=== PATIENT | male | born 1955 | race Caucasian/White ===

== ENCOUNTER → 2017-02-24 | Outpatient (CLI) | payer OTHER ==
--- NOTE | 2017-02-24 12:25 | US ---
EXAMINATION TYPE: US kidneys/renal and bladder DATE OF EXAM: 02/24/2017 11:22 AM COMPARISON: NONE CLINICAL HISTORY: 61-year-old male R13.9 HEMATURIA,R10.9 FLANK PAIN. Right flank pain, history of kid rylee stones. TECHNIQUE: Multiple sonographic images of the kidneys and bladder were obtained. FINDINGS: Right Kidney: 13.1 x 5.3 x 5.6 cm with a mid pole echogenic focus measuring 7 mm. No hydronephrosis. Left Kidney: 12.5 x 5.9 x 5.0 cm with a 5 mm echogenic focus at the lower pole. There is mild caliect asis. No pelvic dilatation seen. No gross abnormality of the urine distended bladder. Both ureteral jets are visualized. Incidentally, echogenic appearance to the liver adjacent to the right kidney. IMPRESSION: 1. There is no ha hydronephrosis. Some caliectasis is noted on the left and may be transient. Foll ow-up as clinically indicated. 2. Suggestion of nonobstructing renal calculi, one on each side, measuring 7 mm on the right and 5 mm on the left. 3. Both ureteral jets are visualized. 4. Correlate for underlying fatty infiltration of the liver.
== END ==
LOC: RADUSWWP 10:40
PROVIDERS: ATTEND Internal Medicine
DX: R10.9 Unspecified abdominal pain (principal)
CPT/HCPCS: 76770

== ENCOUNTER → 2017-03-31 | Outpatient (CLI) | payer OTHER ==
--- NOTE | 2017-04-01 09:39 | MR ---
EXAMINATION TYPE: MR lumbar spine wo con DATE OF EXAM: 03/31/2017 5:35 PM COMPARISON: 03/03/2015 HISTORY: pain, hx of tailbone fx 20 years. TECHNIQUE: T1 and T2 axial and sagittal images of the lumbar spine are submitted. FINDINGS: There is no abnormal signal seen within the visualized spinal cord or paraspinal soft tissu es. There is a abdominal aortic aneurysm which is not entirely included on exam but has been previous ly reported measuring 4.2 cm. L1-L2: Normal disc appearance without desiccation. No herniation, protrusion or disc bulging. No carmen l stenosis is present. Foramina are patent bilaterally. L2-L3: Normal disc appearance without desiccation. No herniation, protrusion or disc bulging. No carmen l stenosis is present. Foramina are patent bilaterally. L3-L4: Normal disc appearance without desiccation. No herniation, protrusion or disc bulging. No carmen l stenosis is present. Foramina are patent bilaterally. L4-L5: Moderate decreased signal and loss of height compatible with degenerative disc disease. Right paracentral disc protrusion is essentially unchanged relative to the prior study. Mild right lateral recess stenosis is noted. No evidence for foraminal encroachment or central stenosis. Mild facet join t arthropathy. L5-S1: Moderate decreased signal and loss of height compatible with degenerative disc disease. Medical Administrative ocentral disc protrusion mildly effaces the ventral thecal sac. No evidence for central stenosis. Mil d facet joint arthropathy. Mild to moderate bilateral foraminal encroachment. IMPRESSION: 1. Infrarenal abdominal aortic aneurysm which is been previously reported as likely partially include d on this exam appears to measure at least 4.3 cm in greatest dimension. 2. Degenerative disc disease primarily at L4-L5 and L5-S1 with disc protrusions as described above es sentially unchanged from prior examination. EXAMINATION TYPE: MR cervical spine wo con DATE OF EXAM: 03/31/2017 5:35 PM COMPARISON: NONE HISTORY: pain, hx of tailbone fx 20 years. TECHNIQUE: T1 sagittal and coronal, T2 sagittal, and gradient echo axial views of the cervical spine are submitted. FINDINGS: The cranial cervical junction is preserved. There is no abnormal signal seen within the sp inal cord or paraspinal soft tissues. At C2-3 there is a focal central and right paracentral disc protrusion or herniation. Neural foramina patent. Mild mass effect upon the anterior margin the spinal cord. At C3-4 there is uncovertebral joint hypertrophy greater on the right with disc osteophyte complex re sulting in mild canal stenosis, severe right foraminal encroachment and moderate to severe left deisi inal encroachment. At C4-5 there is degenerative disc disease with posterior disc osteophyte complex and uncovertebral j oint hypertrophy.. Facet arthropathy. Severe bilateral foraminal encroachment greater on the left and mild canal stenosis. At C5-6 there is facet arthropathy and mild uncovertebral joint projecting. No foraminal encroachment . No Canal stenosis. At C6-7 there is degenerative disc disease with broad-based central disc protrusion and disc osteophy te complex. Uncovertebral joint projecting with moderate bilateral foraminal encroachment and mild ca nal stenosis. At C7-T1 there is a right paracentral lateral disc protrusion with uncovertebral joint hypertrophy wi th right-sided foraminal encroachment. IMPRESSION: 1. Multilevel degenerative disc disease with disc osteophyte complex and disc protrusion resulting i n multilevel canal stenosis and severe foraminal encroachment. 2. Focal right central and paracentral disc protrusion or herniation C2-C3 results in mild mass effec t upon the anterior margin of the spinal cord.
== END | disposition home or self-care (01) ==
LOC: RADMRIMAIN 16:44
PROVIDERS: ATTEND Nurse Practitioner Acute Care
DX: M99.71 Connective tissue and disc stenosis of intervertebral foramina of cervical region (principal); M50.30 Other cervical disc degeneration, unspecified cervical region; M50.21 Other cervical disc displacement, high cervical region; M51.26 Other intervertebral disc displacement, lumbar region; M51.36 Other intervertebral disc degeneration, lumbar region
CPT/HCPCS: 72141; 72148

== ENCOUNTER → 2017-12-31 | Outpatient (CLI) | payer OTHER ==
--- NOTE | 2017-12-31 09:47 | US ---
EXAMINATION TYPE: US scrotum with doppler. Grayscale and color Doppler Duplex imaging performed of christal noel scrotum. DATE OF EXAM: 12/31/2017 COMPARISON: NONE CLINICAL HISTORY: N50.89 testicular swelling. Intermittent bilateral testicular pain x 5 months EXAM MEASUREMENTS: TESTICLES: Right Testicle: 4.5 x 2.3 x 3.5 cm Left Testicle: 4.1 x 2.4 x 3.9 cm EPIDIDYMIS HEAD: Right Epididymis: 1.1 x 0.9 x 1.5 cm Left Epididymis: 1.0 x 1.2 x 1.7 cm Doppler performed to assess for testicular vascularity; good bilateral color flow and waveforms are s een. Presence of hydroceles: small bilateral: right 2.8cm, left 1.1cm Presence of varicoceles: prominent vessels superior to left testicle that increase with valsalva Satisfactory blood flow to both testicles is seen on color images. Suspect left[place] [id number] with increased vascular prominence on Valsalva maneuver noted IMPRESSION: No suspicious diminished or increased blood flow to either testicle identified.
--- NOTE | 2017-12-31 10:54 | CT ---
EXAMINATION TYPE: CT abdomen pelvis w con DATE OF EXAM: 12/31/2017 COMPARISON: 03/27/2015 HISTORY: 62-year-old male with abdominal and pelvic pain. Testicular swelling since September 2017. TECHNIQUE: Contiguous axial scanning of the abdomen and pelvis following administration of 100 ml Omn ipaque 300 IV contrast. Delayed images through the kidneys and coronal/sagittal reconstructions perf ormed. CT DLP: 1525 mGycm Automated exposure control for dose reduction was used. FINDINGS: Heart normal size without pericardial effusion. Lung bases clear without pleural effusion. Ectasia of the lower descending thoracic aorta at 2.8 cm. Liver enlarged measuring 20.4 cm craniocaudal. No focal lesion seen. No biliary ductal dilatation. Po rtal venous system is patent. Gallbladder, right adrenal gland, right kidney, spleen, and pancreas appear within normal limits. Residual 9 mm left lower pole renal calculus, smaller as compared to 8 03/29/2015. Symmetric uptake an d excretion of contrast from both kidneys. No dilated small bowel, free fluid, or free air. No mesenteric or retroperitoneal lymphadenopathy. Oral contrast progressed to the cecum. There is mild stool burden without pericolonic inflammatory ch mariaa. Mid abdominal aorta remains ectatic and 2.7 cm. Redemonstrated fusiform infrarenal abdominal aortic aneurysm measuring up to 4.9 cm wide and 4.7 cm A P on coronal image 24 and sagittal image 37, respectively. This is in comparison to 4.3 x 4.2 cm on . Prominent circumferential plaque and thrombus remains. The patent lumen is narrowed to 2.5 cm. 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 Left common iliac artery is ectati c at 1.8 cm, unchanged. Bladder is urine distended. Central prostatic calcifications redemonstrated. No abnormal fluid collec tion in the pelvis or pelvic lymphadenopathy seen. Bones: Degenerative changes of the hips and lower lumbar spine. Endplate spondylosis lower thoracic s pine. No osseous destructive process. IMPRESSION: 1. 9 MM NONOBSTRUCTIVE LEFT LOWER POLE RENAL CALCULUS. 2. REDEMONSTRATED AAA. THIS HAS ENLARGED FROM 2015 NOW MEASURING 4.9 X 4.7 CM (VERSUS 4.3 X 4.2 CM, P REVIOUSLY). APPROPRIATE FOLLOW-UP RECOMMENDED. 3. 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
== END | disposition home or self-care (01) ==
LOC: RADCTMAIN 08:02
PROVIDERS: ATTEND Internal Medicine
DX: N20.0 Calculus of kidney (principal); I71.4 Abdominal aortic aneurysm, without rupture; I72.3 Aneurysm of iliac artery; N50.89 Other specified disorders of the male genital organs; Z91.041 Radiographic dye allergy status
CPT/HCPCS: 93975; 76870; 74177; Q9967

== ENCOUNTER → 2018-11-04 | Outpatient (CLI) | payer OTHER ==
[2018-11-04 13:20] LABS: HCT 49.4 % (39.0-53.0); HGB 16.4 gm/dL (13.0-17.5); MCH 30.9 pg (25.0-35.0); MCHC 33.2 g/dL (31.0-37.0); MCV 92.8 fL (80.0-100.0); Mean Platelet Volume 6.1; Platelet Count 216 k/uL (150-450); RBC 5.32 m/uL (4.30-5.90); RDW 13.2 % (11.5-15.5); WBC 14.6 k/uL (3.8-10.6)
[2018-11-04 13:32] LABS: Anion Gap 9 mmol/L; Blood Urea Nitrogen 11 mg/dL (9-20); Carbon Dioxide 28 mmol/L (22-30); Chloride 105 mmol/L (98-107); Potassium 4.7 mmol/L (3.5-5.1); Sodium 142 mmol/L (137-145)
== END ==
LOC: LABPAT 12:54
PROVIDERS: ATTEND Internal Medicine Interventional Cardiology
DX: Z01.812 Encounter for preprocedural laboratory examination (principal); I71.4 Abdominal aortic aneurysm, without rupture; E78.5 Hyperlipidemia, unspecified
CPT/HCPCS: 36415; 80051; 82565; 84520; 85027

== ENCOUNTER → 2018-11-09 | Outpatient (CLI) | payer OTHER ==
[~2018-11-09] MED LIST: diphenhydrAMINE 50 MG/ML 1 ML VIAL IVP STA; methylPREDNISolone SOD SUCCI 125 MG/2 ML VIAL IV STA; methylPREDNISolone SOD SUCCI 125 MG/2 ML VIAL ONE
--- NOTE | 2018-11-09 11:58 | CT ---
EXAMINATION TYPE: CT angio abdomen DATE OF EXAM: 11/09/2018 10:24 AM COMPARISON: 12/31/2017 HISTORY: Pre OP stent placement CT DLP: 812.2 mGycm Automated exposure control for dose reduction was used. TECHNIQUE: Performed with IV Contrast, patient injected with 100 mL of Isovue 370. . FINDINGS: Limited CT sections are obtained the lung bases which are clear CTA abdomen: The aorta at the level of the gema of the diaphragm has an AP dimension of 2.9 cm. Julissa c axis and superior mesenteric artery takeoffs appears normal. The renal artery origins appear normal . The aorta at the level of the renal arteries measures 2.9 cm AP dimension. The fusiform prominence of the abdominal aorta begins 3.5 cm below the renal arteries. The aortic diameter before the aneurys m is 2.9 cm. This expands to a maximum AP dimension of 5.0 cm. This tapers near the aortic bifurcatio n to 2.7 cm. The proximal left common iliac artery has a transverse dimension 1.4 cm. The right commo n iliac artery transverse dimension is 1.9 cm. There is some fusiform prominence of the distal common iliac artery measuring 2.1 cm transverse. The right common iliac artery tapers to the bifurcation in to symmetrical internal and external iliac arteries bilaterally. External iliac arteries are patent t o the common femoral arteries. CT abdomen: At this phase of contrast the liver spleen pancreas and adrenal glands appear normal. The gallbladder is decompressed. Kidneys appear normal without masses cysts or hydronephrosis. Inferior vena cava is unremarkable Loops of bowel without contrast appear unremarkable. CT PELVIS: A few diverticuli without acute diverticulitis are within the sigmoid colon. Urinary bladd er is normal. Prostate calcification is present. Three-D reconstructed images through the aorta and iliac vessels is performed by the technologist on the [employer] computer and presented for review. IMPRESSION: THERE IS A 5.0 CM. THIS BEGINS APPROXIMATELY 3.5 CM BELOW THE RENAL ARTERIES AND TERMINATES AT THE BI FURCATION. THE RIGHT COMMON ILIAC ARTERY DISTALLY IS PROMINENT MEASURING 2.1 CM.
== END ==
LOC: RADCTMAIN 08:54
PROVIDERS: ATTEND Internal Medicine Interventional Cardiology
DX: N18.9 Chronic kidney disease, unspecified (principal); Q63.8 Other specified congenital malformations of kidney
CPT/HCPCS: 74175; J1200; J2930; Q9967

== ENCOUNTER 2018-11-11 06:32 | Inpatient (IN) | payer OTHER ==
[2018-11-04 08:53] VITALS: BMI 28.8
[~2018-11-11 06:32] MED LIST changes: +ALPRAZolam 0.25 MG TAB PO PRN; +DEXAMETHASONE SOD PHOSPHATE 10 MG/ML 1 ML VIAL IV ONE; +HYDROmorphone 0.5 MG/0.5 ML SYRINGE IVP PRN; +LIDOCAINE 1% 20 ML VIAL (10MG/ML) FOR IV START INTRADERMA PRN; +ONDANSETRON 4 MG/2 ML VIAL IVP ONE; +SODIUM CHLORIDE 0.9% 1,000 ML in EMPTY BAG 1 BAG IV ONE; -diphenhydrAMINE 50 MG/ML 1 ML VIAL IVP STA; -methylPREDNISolone SOD SUCCI 125 MG/2 ML VIAL IV STA; -methylPREDNISolone SOD SUCCI 125 MG/2 ML VIAL ONE
[2018-11-11] MEDS: CLINDAMYCIN 900 MG in DEXTROSE 5% IN WATER 50 ML IVPB ONE ×4 (07:27→08:00)
[2018-11-11] MEDS ORDERED: SODIUM CHLORIDE 0.9% 1,000 ML IV ONE (08:00)
[2018-11-11] MEDS ORDERED: IOPAMIDOL-250 100ML BTL INTRAARTER ONE (09:25)
[2018-11-11] MEDS ORDERED: IOPAMIDOL-250 50ML BTL INTRAARTER ONE (09:25)
[2018-11-11] MEDS ORDERED: SODIUM CHLORIDE 0.9% 1,000 ML IV SCH (09:45)
[2018-11-11 10:10] LABS: Glucose,Whole Blood 143 mg/dL (75-99)
--- NOTE | 2018-11-11 10:33 | LTR ---
DATE OF SERVICE: 11/11/2018 RE: Shawn Melgar Dear Dr. Azevedo; Mr. Shawn Melgar underwent successful percutaneous repair of abdominal aortic aneurysm with a good result by the end and without any complication. Thank you for allowing us to participate in his care and please do not hesitate to call if you have any question or concern. Sincerely, MD DORIE Briggs / KIARAN: [id number] /
--- NOTE | 2018-11-11 10:57 | AN ---
ANGIOGRAPHY REPORT PERFORMING PHYSICIAN: 1. Jacek Keita MD, Network Admin. 2. David Steven MD, Vascular Surgeon. PROCEDURE PERFORMED: Successful endovascular repair of infrarenal abdominal aortic aneurysm using 34 mm ovation IX with the extension of 22 x 160 right iliac limb and 18 x 114 left iliac limb with an excellent angiographic results by the end and without any evidence of endoleak. APPROACH: 1. Right common femoral artery. 2. Left common femoral artery. INDICATION: This is a pleasant 63-year-old gentleman with history of hypertension as well as dyslipidemia who was diagnosed with infrarenal abdominal aortic aneurysm which has been monitored for the last several years. On the last CT scan, the infrarenal abdominal aortic aneurysm was about 5 cm and the patient was concerned about it. Because of that, we decided to pursue with endovascular repair of the aneurysm. COMPLICATION: None. LEVEL OF SEDATION: Deep sedation was performed with CROSSING FLAGMAN as well as anesthesiologist in the room. PROCEDURE DESCRIPTION: After obtaining an informed consent, the patient was brought to the cardiac label printer. The patient was placed under general anesthesia after he was seen and evaluated by an is by an anesthesiologist as well as CROSSING FLAGMAN in the room. After that, the patient was prepped and draped in the usual sterile fashion. Subsequently, local anesthesia was applied for both groins. That was performed using lidocaine subcutaneously. At that point, we did achieve percutaneous access using micropuncture technique, the micropuncture wire passed easily, then we inserted an 8-Djiboutian sheath into the right common femoral artery using an 0.035 Roselle Advantage wire. After that, we did deploy two Perclose at 10 and 2 o'clock at the right groin. Subsequently, we did access the left common femoral artery using micropuncture technique. Under ultrasound guidance, the micropuncture wire passed easily. Then we placed a 6-Djiboutian sheath in the left common femoral artery. That was performed over an 0.035 Roselle Advantage wire. After that, we did deploy two Perclose at the left groin at 10 and 2 o'clock as well as for hemostasis by the end of the procedure. At that point, anticoagulation was achieved using heparin IV and the patient was given 6500 units of IV heparin. Subsequently, we loaded a 34 mm ovation IX aortic beth delivery system over the guidewire which was an 0.035 Amplatzer wire. We inserted delivery system into vasculature and advanced until the implant radiopaque marker where about 1 mm proximal to the intended landing site. We did orient the aortic beth to the desired position for appropriate access to the contralateral aortic body limb. Please note that we did an abdominal aortic angiogram before we did that. We did also place marker at the takeoff of the renal arteries. After that, we did retract the delivery system, outer sheath until the sheath retraction knob met handle. Then we verified the aortic beth radiopaque marker and long delivery system radiopaque marker where in the correct position. Subsequently. I did deploy the first segment of the proximal stent by turning the first stent release knob for a quarter turn counter-clockwise and then I steadily pulled the knob and attached the wire from the handle. We precisely positioned the implant radiopaque marker at first proximal landing site. I used contrast injection to confirm implant position relative to renal arteries. That was achieved at the beginning of the procedure. Subsequently, we retracted the angiographic catheter away from the proximal stent. I deployed the remainder of the proximal stent by turning second stent release knob another quarter turn counter- clockwise and then steadily pulled the knob and attached wire from the handle. Then we did removed the Rona cap from pulling the injection port on handle and attached the fill syringe to it. We did retract the aortic beth guidewire tip to radiopaque marker distal to the aortic beth. Under fluoroscopy guidance, we did intermittently observe the filling of the graft with radiopaque filling pointer. We did maintained guidewire position to remove angiographic catheter and introducer sheath from contralateral access site. At that point, on the left side we loaded 18 x 140 iliac limb delivery system over contralateral guidewire. We used continuous fluoroscopy guidance to insert iliac limb delivery system into the vasculature and total proximal iliac limb radiopaque marker aligned with the most proximal half ring of the aortic beth. I confirmed the proximal and distal iliac lymph radiopaque marker to be at the appropriate location. Subsequently, we retracted the sheath to deploy the iliac limb on the left side while maintaining catheter handle position. We did do the same thing on the right side, but at this time using 22 x 160 limb delivery system. Subsequently, we achieve hemostasis on the right and left groin by deploying the 2 Perclose. By the end of the procedure, the patient did have good bilateral femoral pulses as well as good pedal pulses. Before the end of the procedure, we did an angiogram and there was no evidence of type 1 or type 2 endoleak noted. The procedure was completed without any complication. POSTPROCEDURE MANAGEMENT: 1. ICU admission. 2. Discharge the following day. 3. Follow up with the patient as an outpatient. DORIE / MICHAEL: [id number] /
[2018-11-11 11:00] LABS: Glucose,Whole Blood 174 mg/dL (75-99)
--- NOTE | 2018-11-11 11:20 | P.OP ---
Date of Procedure: 11/11/18 Preoperative Diagnosis: Infrarenal AAA 5.0cm Postoperative Diagnosis: Same Procedure(s) Performed: Endovascular aortic repair with ovation iX device. Ultrasound-guided bilateral femoral artery access with Perclose closure device placement Aortogram Implants: Ovation aortic graft Anesthesia: GETA Surgeon: Jacek Keita (Primary) Parking Cashier #1: David Steven (Secondary Surgeon) Pathology: none sent Condition: stable Disposition: PACU Indications for Procedure: 63-year-old gentleman with infrarenal abdominal aortic aneurysm measuring 5.0 cm presents for elective aortic repair. Description of Procedure: After written informed consent was obtained the patient all risks benefits competitions were described the patient is brought to the lab nurse and laid in the supine position. The area of the groins and abdomen were prepped and draped in usual sterile fashion after appropriate anesthetic was performed per the anesthesiologist. Timeout was performed in normal fashion antibiotics were administered prior to incisions. Utilizing ultrasound bilateral common femoral arteries were visualized and shown to have no significant calcification or thrombus and were patent. Femoral arteries were then accessed with a micropuncture kit and ultimately Glidewire advantage was placed under direct physician of fluoroscopy. Perclose closure device was then placed in normal fashion the bilateral femoral arteries and femoral sheaths were then placed after this point. Patient was administered heparin and followed by serial ACTs. Aortogram was then obtained after placement of the pigtail catheter followed by deployment of the aortic graft. Please see Dr. Keita's dictation for detailed endograft deployment. Bilateral retrograde angiograms were also obtained to further delineate the landing zones for the iliac limbs. Iliac limbs were deployed in normal fashion. The conclusion of the procedure angiogram was obtained demonstrating no evidence of endoleak. All guidewires and catheters were removed and Perclose closure devices were deployed in normal fashion without any evidence of hematoma or bleeding. The area was then cleansed and dressings were placed. Patient tolerated procedure well had palpable posterior tibial artery pulses bilaterally at the conclusion of the procedure.
[2018-11-11 12:40] LABS: Basophils % (A) 0 %; Eosinophils # (A) 0.1 k/uL (0-0.7); Eosinophils % (A) 0 %; HCT 42.3 % (39.0-53.0); HGB 14.2 gm/dL (13.0-17.5); Lymphocytes # (A) 2.2 k/uL (1.0-4.8); Lymphocytes % (A) 10 %; MCH 31.7 pg (25.0-35.0); MCHC 33.5 g/dL (31.0-37.0); MCV 94.5 fL (80.0-100.0); Mean Platelet Volume 6.9; Monocytes # (A) 0.5 k/uL (0-1.0); Monocytes % (A) 2 %; Neutrophils # (A) 18.4 k/uL (1.3-7.7); Neutrophils % (A) 86 %; Platelet Count 206 k/uL (150-450); RBC 4.48 m/uL (4.30-5.90); RDW 13.7 % (11.5-15.5); WBC 21.3 k/uL (3.8-10.6)
[2018-11-11 12:46] LABS: Anion Gap 8 mmol/L; Blood Urea Nitrogen 15 mg/dL (9-20); Calcium 8.6 mg/dL (8.4-10.2); Carbon Dioxide 23 mmol/L (22-30); Chloride 108 mmol/L (98-107); Glucose 190 mg/dL (74-99); Sodium 139 mmol/L (137-145)
--- NOTE | 2018-11-11 15:27 | IR ---
EXAMINATION TYPE: IR stent intravas non coronary DATE OF EXAM: 11/11/2018 COMPARISON: NONE HISTORY: Fluoroscopy time. Fluoroscopy was provided to the referring clinician. See dictated report from cardiology.
[2018-11-11] MEDS ORDERED: tiZANidine 4 MG TAB PO PRN (15:38)
[2018-11-11] MEDS: LACTATED RINGERS 1,000 ML IV SCH ×2 (15:42)
[2018-11-11] MEDS: MORPHINE SULFATE IR 15 MG TABLET PO PRN (16:09)
[2018-11-11 17:16] LABS: Glucose,Whole Blood 204 mg/dL (75-99)
[2018-11-11 19:21] LABS: Glucose,Whole Blood 186 mg/dL (75-99)
[2018-11-11] MEDS: INSULIN ASPART 100 UNIT/ML 1 ML 10 ML VIAL SQ SCH ×2 (19:27→21:46)
[2018-11-11] MEDS ORDERED: ALBUTEROL NEBULIZED 2.5 MG/3 ML INHALATION SCH (20:00)
[2018-11-11 21:48] LABS: Glucose,Whole Blood 154 mg/dL (75-99)
[2018-11-12 04:16] LABS: Hemoglobin A1C 6.5 % (4.0-6.0)
[2018-11-12] MEDS: MORPHINE SULFATE IR 15 MG TABLET PO PRN (05:32)
[2018-11-12] MEDS: LACTATED RINGERS 1,000 ML IV SCH ×2 (05:35)
[2018-11-12 06:53] LABS: Glucose,Whole Blood 116 mg/dL (75-99)
[2018-11-12] MEDS: INSULIN ASPART 100 UNIT/ML 1 ML 10 ML VIAL SQ SCH (08:30)
--- NOTE | 2018-11-12 08:43 | DS ---
DISCHARGE SUMMARY ADMISSION DATE: 10/11/2018. DISCHARGE DATE: 10/12/2018 BRIEF HISTORY: This is a very pleasant 63-year-old gentleman who I follow in the office as an outpatient who was admitted to the hospital yesterday and underwent successful endovascular repair of infrarenal abdominal aortic aneurysm using 34 mm ovation IX with the extension of 2 limbs. The procedure was performed completely percutaneously from the right and left groins. We did percutaneous closure of both groins using the Perclose device. On follow up with the patient today, he is completely asymptomatic. Both groins are soft and nontender and without any bruises. The patient is going to be discharged home today on his home medication and I will follow up with the patient in the office in a week with continuous CTA monitoring for endoleak. MMZHAOL / KIARAN: [id number] /
[2018-11-12] MEDS ORDERED: LORATADINE 10 MG TAB PO SCH (09:00)
[2018-11-12] MEDS ORDERED: ATORVASTATIN 40 MG TAB PO SCH (09:00)
[2018-11-12 10:30] VITALS: BP 146/84; PULSE 78; RESP 16; TEMP 97.9
== END 2018-11-12 10:55 | disposition home or self-care (01) | DRG 269 ==
LOC: 2ORMAIN 06:32 → 2SICU 09:34
PROVIDERS: ADMIT Internal Medicine Interventional Cardiology; ATTEND Internal Medicine Interventional Cardiology
PROC: 04V03DZ Restriction of Abdominal Aorta with Intraluminal Device, Percutaneous Approach (ICD-10-PCS; principal; 2018-11-11 07:26)
DX: I71.4 Abdominal aortic aneurysm, without rupture (principal); E78.5 Hyperlipidemia, unspecified; J44.9 Chronic obstructive pulmonary disease, unspecified; M19.90 Unspecified osteoarthritis, unspecified site; F17.200 Nicotine dependence, unspecified, uncomplicated; E66.9 Obesity, unspecified; Z68.31 Body mass index [BMI] 31.0-31.9, adult; Z79.899 Other long term (current) drug therapy
CPT/HCPCS: 34705; 80048; 82565; 83036; 85025; 86850; 86900; 86901; 93005

== ENCOUNTER → 2019-03-02 | Outpatient (CLI) | payer OTHER ==
[2019-03-02 13:52] LABS: Blood Urea Nitrogen 11 mg/dL (9-20)
--- NOTE | 2019-03-03 18:51 | CT ---
EXAMINATION TYPE: CT angio abdomen DATE OF EXAM: 03/02/2019 COMPARISON: 11/09/2018 HISTORY: 63-year-old male Follow up aortic stent graft. CT DLP: 1901 mGycm, Automated Exposure Control for Dose Reduction was Utilized. CONTRAST: CT scan of the abdomen and pelvis is performed without and with IV Contrast, patient injected with 10 0 mL of Isovue 370. Delayed images were obtained through the stent graft. 3-D reconstructions generat ed on a dedicated independent workstation. FINDINGS: Heart normal size without pericardial effusion. Lung bases clear without pleural effusion. No focal liver lesion or biliary ductal dilatation. Portal venous system is patent. Several prominent yue hepatic lymph nodes measuring up to 9 mm and portacaval lymph node measuring 9 mm. Unchanged. Gallbladder, adrenal glands, right kidney, spleen, and pancreas appear within normal limits. Couple tiny similar centimeter hypodensities within the left kidney too small fractured CT characteri zation, probable tiny cysts. Punctate 4 mm nonobstructive left lower pole renal calculus. No dilated small bowel, free fluid, or free air. No mesenteric or retroperitoneal lymphadenopathy oth erwise seen. Mild stool burden. No pericolonic inflammatory change. Moderate circumferential bladder wall thickening may relate to incomplete distention. Prostate gland is borderline enlarged at 4.0 cm With central calcifications. No abnormal fluid collection in the pelvis or pelvic lymphadenopathy. BONES: Degenerative changes of both hips. Facet arthropathy lower lumbar spine. Endplate spondylosis lower t horacic spine. VASCULATURE: Interval placement of endovascular abdominal aortic stent graft beginning at the level of the celiac axis. There is a modular connection just below the level of the patent single renal arteries with bii liac component traversing the [place] sac which measures 5.0 cm now versus 5.1 cm, previously. There is no abnormal extension of contrast into the excluded [place] sac. The iliac stent landing zones occur at the mildly dilated right common iliac artery which measures 2. 0 cm versus 2.1 cm, previously in the left common iliac artery which measures 1.8 cm, unchanged. IMPRESSION: 1. Endovascular abdominal aortic stent graft placement beginning at the level of the celiac axis and extending to the common iliac arteries. 2. The [place] sac measures 5.0 cm now versus 5.1 cm, previously. No evidence for endoleak. 3. The common iliac artery landing zones remain mildly aneurysmal/ectatic at 2.0 cm on the right (citlaly consuelo 2.1 cm, previously) and 1.8 cm on the left (unchanged). 4. Unchanged 4 mm nonobstructive left renal calculus. 5. Circumferential bladder wall thickening. Correlate to exclude cystitis.
== END | disposition home or self-care (01) ==
LOC: RADCTMAIN 13:22
PROVIDERS: ATTEND Internal Medicine Interventional Cardiology
DX: Z48.815 Encounter for surgical aftercare following surgery on the digestive system (principal); I72.3 Aneurysm of iliac artery; Z95.828 Presence of other vascular implants and grafts
CPT/HCPCS: 82565; 84520; 74175; 36415; Q9967

== ENCOUNTER 2019-06-10 10:09 | Emergency (ER) | payer OTHER ==
[2019-06-10 10:18] VITALS: BP 161/79; PULSE 62; RESP 18; TEMP 97.5
[2019-06-10] MEDS ORDERED: SODIUM CHLORIDE 0.9% 1,000 ML IV STA (10:49)
[2019-06-10] MEDS ORDERED: MECLIZINE 12.5 MG TAB PO STA (10:49)
--- NOTE | 2019-06-10 10:52 | ED ---
Dizziness HPI - General Chief Complaint: Dizziness Stated Complaint: Dizzy Time Seen by Provider: 06/10/19 10:30 Source: patient Mode of arrival: ambulatory Limitations: no limitations - History of Present Illness Initial Comments: Patient is a 63-year-old male presenting to the emergency Department with complaints of dizziness 1 day. Patient states he rolled over in bed this morning and stated that the room was spinning. He said this episode lasted for about 20 seconds and he felt improvement. Patient states he then had a cup of coffee and then went to let the dog out, he bent over and stood back up and had another episode where the room was spinning. Patient states this lasted again for about 20 seconds and then he was able to go into the kitchen where he still felt lightheaded but improvement. Patient states he has had a few more episodes of dizziness since being in the ER. Patient states he has never experienced this before. Patient denies any trauma. Patient denies any recent illnesses, fever, chills, shortness of breath, chest pain, abdominal pain. Patient states he did have an distal aortic stent placed in November without complications. Patient states in February he had an abdominal CT performed as a follow-up for placement of the stent and showed no complications at this time. Patient states he also has history of hyperlipidemia. No other complaints at this time. - Related Data Home Medications Medication Instructions Recorded Confirmed Atorvastatin [Lipitor] 40 mg PO DAILY 05/31/15 06/10/19 Morphine Sulfate Ir [MSIR] 15 mg PO BID PRN 05/31/15 06/10/19 Albuterol Inhaler [Ventolin Hfa 1 - 2 puff INHALATION RT-BID PRN 11/04/18 06/10/19 Inhaler] Fluticasone/Salmeterol [Advair 1 puff INHALATION RT-DAILY PRN 11/04/18 06/10/19 250-50 Diskus] Morphine Sulfate ER [Ms Contin] 15 mg PO Q12HR 06/10/19 06/10/19 Previous Rx's Medication Instructions Recorded Meclizine HCl 25 mg PO DAILY 10 Days #10 tablet 06/10/19 Allergies Allergy/AdvReac Type Severity Reaction Status Date / Time famotidine Allergy Vomiting Verified 06/10/19 10:38 Iodinated Contrast- Oral and Allergy Vomiting Verified 06/10/19 10:38 IV Dye [Iodinated Contrast Media - IV Dye] Penicillins Allergy Rash/Hives Verified 06/10/19 10:38 Review of Systems ROS Statement: Those systems with pertinent positive or pertinent negative responses have been documented in the HPI. ROS Other: All systems not noted in ROS Statement are negative. Past Medical History Past Medical History: Asthma, COPD, Diabetes Mellitus, Osteoarthritis (OA) Additional Past Medical History / Comment(s): chronic back pain from back injury 20 yrs ago, aortic aneurysm, varicose veins, constipation, kdiney stones, diet control diabetic, current cold symptoms. History of Any Multi-Drug Resistant Organisms: None Reported Past Surgical History: Orthopedic Surgery, Tonsillectomy Additional Past Surgical History / Comment(s): arthroscopic left knee, LEFT PERCUTANEOUS NEPRHOLITHOTOMY, cystoscopy, lasik eye surgery Past Anesthesia/Blood Transfusion Reactions: No Reported Reaction Past Psychological History: No Psychological Hx Reported Smoking Status: Current some day smoker Past Alcohol Use History: None Reported Past Drug Use History: Marijuana - Past Family History Father Family Medical History: Cancer General Exam - General Exam Comments Initial Comments: GENERAL: Well-appearing, well-nourished and in no acute distress. HEAD: Atraumatic, normocephalic. EYES: Pupils equal round and reactive to light, extraocular movements intact, sclera anicteric, conjunctiva are normal. ENT: TMs normal, nares patent, oropharynx clear without exudates. Moist mucous membranes. NECK: Normal range of motion, supple without lymphadenopathy or JVD. LUNGS: Breath sounds clear to auscultation bilaterally and equal. No wheezes rales or rhonchi. HEART: Regular rate and rhythm without murmurs, rubs or gallops. ABDOMEN: Soft, nontender, normoactive bowel sounds. No guarding, no rebound. No masses appreciated. : Deferred EXTREMITIES: Normal range of motion, no pitting or edema. No clubbing or cyanosis. NEUROLOGICAL: Cranial nerves II through XII grossly intact. Normal speech, normal gait. Patient's strength is 5 out of 5 upper and lower extremity. PSYCH: Normal mood, normal affect. SKIN: Warm, Dry, normal turgor, no rashes or lesions noted. Limitations: no limitations Course Vital Signs 06/10/19 10:16 Temperature 97.5 F L Pulse Rate 62 Respiratory 18 Rate Blood Pressure 161/79 O2 Sat by Pulse 98 Oximetry Medical Decision Making - Medical Decision Making Patient is a 63-year-old male presenting with episodes of vertigo since this morning. Patient states he rolled over in bed this morning and experienced an episode of room spinning. Patient had an additional episode when he bent down to the dog out. Patient states he continues to feel little lightheaded. Patient's exam is unremarkable. CBC did show a white count of 16.1, neutrophils 8.53. CMP is within normal limits. Glucose is 163. UA is within normal limits. EKG is within normal limits. Chest x-ray shows no acute process. P kirstin has been afebrile during stay. Patient denies fever, chills, cough, chest pain, shortness of breath. Patient was given some fluids and meclizine which did improve his symptoms. Case was discussed with Dr. Davila who agrees that patient is stable for discharge. Return parameters were discussed with the patient he verbalized understanding. Patient will follow up with Dr. Azevedo for further treatment of vertigo. - Lab Data Result diagrams: 06/10/19 11:15 06/10/19 11:15 Lab Results 06/10/19 06/10/19 06/10/19 Range/Units 11:12 11:15 11:15 WBC 16.1 H (3.8-10.6) k/uL RBC 4.81 (4.30-5.90) m/uL Hgb 14.4 (13.0-17.5) gm/dL Hct 44.2 (39.0-53.0) % MCV 91.9 (80.0-100.0) fL MCH 30.1 (25.0-35.0) pg MCHC 32.7 (31.0-37.0) g/dL RDW 13.9 (11.5-15.5) % Plt Count 206 (150-450) k/uL Neutrophils % (Manual) 53 % Lymphocytes % (Manual) 35 % Monocytes % (Manual) 11 % Eosinophils % (Manual) 1 % Neutrophils # (Manual) 8.53 H (1.3-7.7) k/uL Lymphocytes # (Manual) 5.64 H (1.0-4.8) k/uL Monocytes # (Manual) 1.77 H (0-1.0) k/uL Eosinophils # (Manual) 0.16 (0-0.7) k/uL Nucleated RBCs 0 (0-0) /100 WBC Manual Slide Review Performed RBC Morphology Normal Sodium 142 (137-145) mmol/L Potassium 3.9 (3.5-5.1) mmol/L Chloride 108 H (98-107) mmol/L Carbon Dioxide 23 (22-30) mmol/L Anion Gap 11 mmol/L BUN 16 (9-20) mg/dL Creatinine 0.82 (0.66-1.25) mg/dL Est GFR (CKD-EPI)AfAm >90 (>60 ml/min/1.73 sqM) Est GFR (CKD-EPI)NonAf >90 (>60 ml/min/1.73 sqM) Glucose 161 H (74-99) mg/dL POC Glucose (mg/dL) 163 H (75-99) mg/dL POC Glu Baseball Glove Stuffer ID Alonzo Simeon Calcium 8.8 (8.4-10.2) mg/dL Total Bilirubin 0.8 (0.2-1.3) mg/dL AST 22 (17-59) U/L ALT 26 (21-72) U/L Alkaline Phosphatase 77 (38-126) U/L Total Protein 6.6 (6.3-8.2) g/dL Albumin 3.9 (3.5-5.0) g/dL Urine Color Urine Appearance (Clear) Urine pH (5.0-8.0) Ur Specific [place] (1.001-1.035) Urine Protein (Negative) Urine Glucose (UA) (Negative) Urine Ketones (Negative) Urine Blood (Negative) Urine Nitrite (Negative) Urine Bilirubin (Negative) Urine Urobilinogen (<2.0) mg/dL Ur Leukocyte Esterase (Negative) Urine RBC (0-5) /hpf Urine WBC (0-5) /hpf Urine Mucus (None) /hpf Urine Sperm (None) /hpf 06/10/19 Range/Units 12:30 WBC (3.8-10.6) k/uL RBC (4.30-5.90) m/uL Hgb (13.0-17.5) gm/dL Hct (39.0-53.0) % MCV (80.0-100.0) fL MCH (25.0-35.0) pg MCHC (31.0-37.0) g/dL RDW (11.5-15.5) % Plt Count (150-450) k/uL Neutrophils % (Manual) % Lymphocytes % (Manual) % Monocytes % (Manual) % Eosinophils % (Manual) % Neutrophils # (Manual) (1.3-7.7) k/uL Lymphocytes # (Manual) (1.0-4.8) k/uL Monocytes # (Manual) (0-1.0) k/uL Eosinophils # (Manual) (0-0.7) k/uL Nucleated RBCs (0-0) /100 WBC Manual Slide Review RBC Morphology Sodium (137-145) mmol/L Potassium (3.5-5.1) mmol/L Chloride (98-107) mmol/L Carbon Dioxide (22-30) mmol/L Anion Gap mmol/L BUN (9-20) mg/dL Creatinine (0.66-1.25) mg/dL Est GFR (CKD-EPI)AfAm (>60 ml/min/1.73 sqM) Est GFR (CKD-EPI)NonAf (>60 ml/min/1.73 sqM) Glucose (74-99) mg/dL POC Glucose (mg/dL) (75-99) mg/dL POC Glu Baseball Glove Stuffer ID Calcium (8.4-10.2) mg/dL Total Bilirubin (0.2-1.3) mg/dL AST (17-59) U/L ALT (21-72) U/L Alkaline Phosphatase (38-126) U/L Total Protein (6.3-8.2) g/dL Albumin (3.5-5.0) g/dL Urine Color Yellow Urine Appearance Clear (Clear) Urine pH 5.0 (5.0-8.0) Ur Specific [place] 1.018 (1.001-1.035) Urine Protein Negative (Negative) Urine Glucose (UA) Negative (Negative) Urine Ketones Negative (Negative) Urine Blood Small H (Negative) Urine Nitrite Negative (Negative) Urine Bilirubin Negative (Negative) Urine Urobilinogen <2.0 (<2.0) mg/dL Ur Leukocyte Esterase Negative (Negative) Urine RBC 2 (0-5) /hpf Urine WBC 1 (0-5) /hpf Urine Mucus Rare H (None) /hpf Urine Sperm Rare (None) /hpf Disposition Clinical Impression: Dizziness Disposition: HOME SELF-CARE Condition: Stable Instructions (If sedation given, give patient instructions): Dizziness (ED) Additional Instructions: Please return to the Emergency Department if symptoms worsen or any other concerns. Follow-up with PCP as discussed. Prescriptions: Meclizine HCl 25 mg PO DAILY 10 Days #10 tablet Is patient prescribed a controlled substance at d/c from ED?: No Referrals: Andressa Azevedo MD [Primary Care Provider] - 1-2 days
[2019-06-10 11:13] LABS: Glucose,Whole Blood 163 mg/dL (75-99)
[2019-06-10 11:24] LABS: HCT 44.2 % (39.0-53.0); HGB 14.4 gm/dL (13.0-17.5); MCH 30.1 pg (25.0-35.0); MCHC 32.7 g/dL (31.0-37.0); MCV 91.9 fL (80.0-100.0); Mean Platelet Volume 6.3; Platelet Count 206 k/uL (150-450); RBC 4.81 m/uL (4.30-5.90); RDW 13.9 % (11.5-15.5); WBC 16.1 k/uL (3.8-10.6)
[2019-06-10 11:36] LABS: ALT 26 U/L (21-72); AST 22 U/L (17-59); African American GFR (CKD) >90 (>60 ml/min/1.73 sqM); Albumin 3.9 g/dL (3.5-5.0); Alkaline Phosphatase 77 U/L (38-126); Anion Gap 11 mmol/L; Blood Urea Nitrogen 16 mg/dL (9-20); Calcium 8.8 mg/dL (8.4-10.2); Carbon Dioxide 23 mmol/L (22-30); Chloride 108 mmol/L (98-107); Glucose 161 mg/dL (74-99); Non-African American GFR(CKD) >90 (>60 ml/min/1.73 sqM); Potassium 3.9 mmol/L (3.5-5.1); Sodium 142 mmol/L (137-145); Total Bilirubin 0.8 mg/dL (0.2-1.3); Total Protein 6.6 g/dL (6.3-8.2)
[2019-06-10 12:24] LABS: Eosinophils # (M) 0.16 k/uL (0-0.7); Lymphocytes # (M) 5.64 k/uL (1.0-4.8); Monocytes # (M) 1.77 k/uL (0-1.0); Neutrophils # (M) 8.53 k/uL (1.3-7.7); Neutrophils % (M) 53 %; Nucleated Red Blood Cells 0 /100 WBC (0-0); Total Cells Counted 100
[2019-06-10 12:57] LABS: Appearance,Urine Clear (Clear); Bilirubin,Urine Negative (Negative); Blood,Urine Small (Negative); Color,Urine Yellow; Glucose,Urine (UA) Negative (Negative); Ketones,Urine Negative (Negative); Leukocyte Esterase,Urine Negative (Negative); Mucus,Urine Rare /hpf; Nitrite,Urine Negative (Negative); Protein,Urine Negative (Negative); RBC,Urine 2 /hpf (0-5); Specific Gravity,Urine 1.018 (1.001-1.035); Sperm,Urine Rare /hpf; Urobilinogen,Urine <2.0 mg/dL (<2.0); WBC,Urine 1 /hpf (0-5)
--- NOTE | 2019-06-10 13:31 | XR ---
EXAMINATION TYPE: XR chest 2V DATE OF EXAM: 06/10/2019 COMPARISON: 05/30/2015 HISTORY: Dizziness, cough, and pain TECHNIQUE: Frontal and lateral views of the chest are obtained. FINDINGS: There is no focal air space opacity, pleural effusion, or pneumothorax seen. Pulmonary hy perinflation and flattening of the diaphragms on the lateral view relates underlying COPD. The cardia c silhouette size is within normal limits. The osseous structures are intact. Moderate multilevel d egenerative changes of the spine are noted. IMPRESSION: No acute cardiopulmonary process.
== END 2019-06-10 14:01 | disposition home or self-care (01) ==
LOC: EC 10:09
DX: R42 Dizziness and giddiness (principal); J44.9 Chronic obstructive pulmonary disease, unspecified; E11.9 Type 2 diabetes mellitus without complications; E78.5 Hyperlipidemia, unspecified; F17.200 Nicotine dependence, unspecified, uncomplicated; Z79.899 Other long term (current) drug therapy; Z88.0 Allergy status to penicillin; Z91.041 Radiographic dye allergy status; Z88.8 Allergy status to other drugs, medicaments and biological substances
CPT/HCPCS: 36415; 71046; 80053; 81001; 85025; 93005; 96360; 96361; 99284

== ENCOUNTER → 2019-07-16 | Outpatient (CLI) | payer OTHER ==
[2019-07-16 15:21] LABS: HCT 44.8 % (39.0-53.0); HGB 15.2 gm/dL (13.0-17.5); MCH 31.1 pg (25.0-35.0); MCHC 33.9 g/dL (31.0-37.0); MCV 91.6 fL (80.0-100.0); Mean Platelet Volume 6.2; Platelet Count 196 k/uL (150-450); RBC 4.89 m/uL (4.30-5.90); RDW 13.7 % (11.5-15.5)
== END | disposition home or self-care (01) ==
LOC: LABPAT 14:49
PROVIDERS: ATTEND Anesthesiology
DX: Z01.812 Encounter for preprocedural laboratory examination (principal)
CPT/HCPCS: 36415; 85027

== ENCOUNTER 2019-07-20 06:02 | Day surgery (SDC) | payer OTHER ==
[2019-07-16 12:25] VITALS: BMI 29.2
[~2019-07-20 06:02] MED LIST changes: -ALPRAZolam 0.25 MG TAB PO PRN; +HEPARIN SODIUM,PORCINE 5,000 UNIT/ML 1 ML VIAL SQ ONE; +LACTATED RINGERS 1,000 ML IV SCH; +SCOPOLAMINE 1.5MG/72HR PATCH TRANSDERM ONE; -SODIUM CHLORIDE 0.9% 1,000 ML in EMPTY BAG 1 BAG IV ONE
[2019-07-20 06:29] LABS: Glucose,Whole Blood 123 mg/dL (75-99)
[2019-07-20] MEDS ORDERED: MIDAZOLAM (PF) 2 MG/2 ML VIAL IVP ONE (07:09)
[2019-07-20] MEDS ORDERED: GLYCOPYRROLATE 0.2 MG/ML 2 ML VIAL ONE (07:55)
[2019-07-20] MEDS ORDERED: KETAMINE 10 MG/ML 20 ML VIAL ONE (07:55)
[2019-07-20] MEDS ORDERED: LIDOCAINE 2%-EPI 1:100,000 20 ML VIAL ONE ×2 (07:55)
[2019-07-20] MEDS ORDERED: ROCURONIUM BROMIDE 10 MG/ML 10 ML VIAL IV ONE (07:55)
[2019-07-20] MEDS ORDERED: ROPIVACAINE 5 MG/ML 30 ML VIAL ONE ×2 (07:55)
[2019-07-20] MEDS ORDERED: SUCCINYLCHOLINE CHLORIDE 100 MG/5 ML SYR IV ONE (07:55)
[2019-07-20] MEDS ORDERED: LIDOCAINE 1% INJ 10MG/ML (20 ML MDV) ONE (07:55)
[2019-07-20] MEDS ORDERED: fentaNYL (PF) 50 MCG/ML 2 ML AMP ONE (07:55)
[2019-07-20] MEDS ORDERED: NEOSTIGMINE 1 MG/ML 10 ML VIAL ONE (07:55)
[2019-07-20] MEDS ORDERED: PROPOFOL 10 MG/ML 20 ML VIAL IV ONE (07:55)
[2019-07-20] MEDS ORDERED: MIDAZOLAM 2 MG/2 ML VIAL ONE (07:55)
--- NOTE | 2019-07-20 08:08 | P.GSHP ---
History of Present Illness H&P Date: 07/20/19 Chief Complaint: Umbilical hernia This a 63-year-old male who presents today for laparoscopic robotic-assisted repair of umbilical hernia. Past Medical History Past Medical History: Asthma, COPD, Diabetes Mellitus, Osteoarthritis (OA) Additional Past Medical History / Comment(s): chronic back pain from back injury 20 yrs ago, aortic aneurysm, varicose veins, constipation, kdiney stones, diet control diabetic History of Any Multi-Drug Resistant Organisms: None Reported Past Surgical History: Heart Catheterization With Stent, Orthopedic Surgery, Tonsillectomy Additional Past Surgical History / Comment(s): arthroscopic left knee, LEFT PERCUTANEOUS NEPRHOLITHOTOMY, cystoscopy, lasik eye surgery, aortic heart stents Past Anesthesia/Blood Transfusion Reactions: No Reported Reaction Date of Last Stent Placement:: 11/11/18 Smoking Status: Current some day smoker - Past Family History Father Family Medical History: Cancer Medications and Allergies Home Medications Medication Instructions Recorded Confirmed Type Atorvastatin [Lipitor] 40 mg PO DAILY 05/31/15 07/20/19 History Morphine Sulfate Ir [MSIR] 15 mg PO BID PRN 05/31/15 07/20/19 History Albuterol Inhaler [Ventolin Hfa 1 - 2 puff INHALATION RT-BID PRN 11/04/18 07/20/19 History Inhaler] Fluticasone/Salmeterol [Advair 1 puff INHALATION RT-DAILY PRN 11/04/18 07/20/19 History 250-50 Diskus] Morphine Sulfate ER [Ms Contin] 15 mg PO Q12HR 06/10/19 07/20/19 History Allergies Allergy/AdvReac Type Severity Reaction Status Date / Time famotidine Allergy Vomiting Verified 07/16/19 12:13 Iodinated Contrast- Oral and Allergy Vomiting Verified 07/16/19 12:13 IV Dye [Iodinated Contrast Media - IV Dye] Penicillins Allergy Rash/Hives Verified 07/16/19 12:13 Surgical - Exam Vital Signs Temp Pulse Resp BP Pulse Ox 98.2 F 57 L 16 116/62 95 07/20/19 06:24 07/20/19 06:24 07/20/19 06:24 07/20/19 06:24 07/20/19 06:24 - General well developed, well nourished, no distress - ENT normal pinna - Neck no masses - Respiratory normal expansion - Cardiovascular Rhythm: regular - Abdomen Abdomen: soft, non tender Hernia: umbilical (3 cm umbilical hernia) Results - Labs Abnormal Lab Results - Last 24 Hours (Table) 07/20/19 Range/Units 06:26 POC Glucose (mg/dL) 123 H (75-99) mg/dL Assessment and Plan Assessment: Umbilical hernia. We'll perform laparoscopic robotic-assisted repair
[2019-07-20] MEDS ORDERED: BUPIVACAIN-EPI 0.25%-1:200,000 30 ML VIAL SQ ONE (08:28)
[2019-07-20] MEDS ORDERED: LACTATED RINGERS 1,000 ML IV ONE (08:57)
[2019-07-20 09:14] VITALS: TEMP 97.3
[2019-07-20] MEDS: .MORPHINE SULFATE (INJ) 10 MG/ML SYRINGE IVP ONE ×4 (09:15→09:41)
--- NOTE | 2019-07-20 09:29 | P.OP ---
Date of Procedure: 07/20/19 Preoperative Diagnosis: Incarcerated umbilical hernia Postoperative Diagnosis: Incarcerated umbilical hernia Procedure(s) Performed: Laparoscopic robotic-assisted repair of incarcerated umbilical hernia Partial omentectomy Anesthesia: ELY Surgeon: Steve Sandoval Pathology: other (Incarcerated omentum) Disposition: PACU Description of Procedure: The patient was placed on the operating table in the supine position. He received general anesthesia. His abdomen was prepped and draped usual fashion. Using a 5 mm optical trocar under direct visualization the peritoneal cavity was entered in the left upper quadrant. The abdomen was then insufflated. The laparoscope was placed back into the perineal cavity. Next a 8 mm robotic trocar was placed in the left lower quadrant and a 12 mm robotic trocar was placed in the left lateral position. The original 5 mm trocar was exchanged for a 8 mm robotic trocar. The patient's placed in the left side up position. And the patient was undocked the robot. The umbilical hernia was visualized. Using hook cautery the peritoneum over the umbilical hernia was excised. The incarcerated omentum was dissected with the hook cautery and sent to pathology. The fascial opening was repaired using 0V LOC suture. Next a piece of 11 cm round ventral light ST mesh was placed into the. Cavity and secured with 2 OV lock suture. The patient was undocked the robot. The needles were retrieved. The fascia of the 12 mm trocar site was closed with 0 Ethibond suture. Skin was closed interrupted 3-0 Monocryl suture. Dermabond dressings was applied. Patient top procedure well and was sent to recovery room stable condition.
[2019-07-20] MEDS: fentaNYL (PF) 50 MCG/ML 2 ML AMP IVP ONE ×2 (09:51→10:02)
[2019-07-20] MEDS ORDERED: ALBUTEROL NEBULIZED 2.5 MG/3 ML INHALATION ONE (10:02)
[2019-07-20 10:43] VITALS: RESP 16
[2019-07-20 11:32] VITALS: BP 159/74; PULSE 87
--- NOTE | 2019-07-21 09:14 | P.ANPRN ---
Procedure Note - Anesthesia - Nerve Block Performed Bilateral Rectus Abdominis Single Time Out Performed: Yes Date of Procedure: 07/20/19 Procedure Start Time: : Procedure Stop Time: 07:14 Location of Patient Procedure: PreOp Indication: Acute Post-Operative Pain, Requested by Surgeon Sedation Type: Sedate with meaningful contact maintained Preparation: Sterile Prep Position: Supine Needle Types: Pajunk Needle Gauge: 21 Ultrasound used to visualize needle placement: Yes Ultrasound used to observe medication spread: Yes Blood Aspirated: No Pain Paresthesia on Injection Noted: No Resistance on Injection: Normal Image Stored and Saved: Yes Events: Uneventful and Well Tolerated (ropi .5% 15cc plus xylo 2% 10cc each side)
== END 2019-07-20 12:45 | disposition home or self-care (01) ==
LOC: OR 06:02
PROVIDERS: ATTEND Surgery
DX: K42.0 Umbilical hernia with obstruction, without gangrene (principal); E11.9 Type 2 diabetes mellitus without complications; G89.29 Other chronic pain; J44.9 Chronic obstructive pulmonary disease, unspecified; M19.90 Unspecified osteoarthritis, unspecified site; Z95.5 Presence of coronary angioplasty implant and graft; F17.200 Nicotine dependence, unspecified, uncomplicated; Z80.9 Family history of malignant neoplasm, unspecified; Z79.899 Other long term (current) drug therapy; Z79.891 Long term (current) use of opiate analgesic; Z88.0 Allergy status to penicillin; Z91.041 Radiographic dye allergy status; Z88.8 Allergy status to other drugs, medicaments and biological substances
CPT/HCPCS: 49653; 64488; 88305; C1781; J2250 ×2; J1644; J1100; J2710; J2270; J0690; J2405; J2001; J3010; J2795; J0330; J2704

== ENCOUNTER 2019-07-22 16:05 | Emergency (ER) | payer OTHER ==
[2019-07-22 16:08] VITALS: TEMP 98.9
[2019-07-22] MEDS ORDERED: ONDANSETRON 4 MG/2 ML VIAL IVP STA (16:47)
[2019-07-22] MEDS ORDERED: SODIUM CHLORIDE 0.9% 1,000 ML IV STA ×2 (16:47)
[2019-07-22] MEDS ORDERED: PANTOPRAZOLE 40 MG/10 ML VIAL IVP STA (16:47)
[2019-07-22] MEDS ORDERED: MORPHINE SULFATE 4 MG/ML SYRINGE IV STA (16:47)
--- NOTE | 2019-07-22 16:54 | ED ---
Abdominal Pain HPI - General Chief Complaint: Abdominal Pain Stated Complaint: Post Op Abd Pain Time Seen by Provider: 07/22/19 16:14 Source: patient, RN notes reviewed, old records reviewed Mode of arrival: ambulatory Limitations: no limitations - History of Present Illness Initial Comments: This is a 63-year-old male the ER for evaluation. Patient presents 2 days postop of the anterior abdominal wall hernia surgery. Patient is a complex surgical medical history refer to chart. Patient states that the pain. To be diffuse with abdominal distention. States both lower extremities are significantly swollen and complaining of mild shortness of breath. Patient does smoke with history of COPD does not wear oxygen. Patient denies significant cur rent chest pain but is having to keep diffuse pain all over when he takes a deep breath he does have pain is difficult taking a deep breath. Patient denies fevers. States he believes his abdominal wounds have been healing appropriately. No drainage has been noticed. Significant redness or erythema. He has not been able to eat anything since surgery has not yet had a bowel movement MD Complaint: abdominal pain -: days(s) (2) Location: diffuse, periumbilical, epigastric Radiation: epigastric Migration to: epigastric Severity: moderate Severity scale (1-10): 7 Quality: aching, sharp Consistency: constant Improves With: nothing Worsens With: nothing Context: recent surgery/procedure (hernia surgery) Associated Symptoms: nausea, vomiting, anorexia - Related Data Home Medications Medication Instructions Recorded Confirmed Atorvastatin [Lipitor] 40 mg PO DAILY 05/31/15 07/22/19 Morphine Sulfate Ir [MSIR] 15 mg PO BID PRN 05/31/15 07/22/19 Albuterol Inhaler [Ventolin Hfa 2 puff INHALATION RT-BID PRN 11/04/18 07/22/19 Inhaler] Fluticasone/Salmeterol [Advair 1 puff INHALATION RT-DAILY PRN 11/04/18 07/22/19 250-50 Diskus] Morphine Sulfate ER [Ms Contin] 15 mg PO Q12HR 06/10/19 07/22/19 Previous Rx's Medication Instructions Recorded Docusate [Colace] 100 mg PO BID #20 capsule 07/20/19 HYDROcodone/APAP 5-325MG [[place] 1 tab PO Q6HR PRN #10 tab 07/20/19 5-325] Allergies Allergy/AdvReac Type Severity Reaction Status Date / Time Penicillins Allergy Rash/Hives Verified 07/22/19 16:13 famotidine AdvReac Vomiting Verified 07/22/19 16:13 Iodinated Contrast- Oral and AdvReac Vomiting Verified 07/22/19 16:13 IV Dye [Iodinated Contrast Media - IV Dye] Review of Systems ROS Statement: Those systems with pertinent positive or pertinent negative responses have been documented in the HPI. ROS Other: All systems not noted in ROS Statement are negative. Past Medical History Past Medical History: Asthma, COPD, Diabetes Mellitus, Osteoarthritis (OA) Additional Past Medical History / Comment(s): chronic back pain from back injury 20 yrs ago, aortic aneurysm, varicose veins, constipation, kdiney stones, diet control diabetic History of Any Multi-Drug Resistant Organisms: None Reported Past Surgical History: Heart Catheterization With Stent, Orthopedic Surgery, Tonsillectomy Additional Past Surgical History / Comment(s): arthroscopic left knee, LEFT PERCUTANEOUS NEPRHOLITHOTOMY, cystoscopy, lasik eye surgery, aortic heart stents Past Anesthesia/Blood Transfusion Reactions: No Reported Reaction Date of Last Stent Placement:: 11/11/18 Past Psychological History: No Psychological Hx Reported Smoking Status: Current every day smoker Past Alcohol Use History: None Reported Past Drug Use History: Marijuana - Past Family History Father Family Medical History: Cancer General Exam Limitations: no limitations General appearance: alert, in no apparent distress Head exam: Present: atraumatic, normocephalic, normal inspection Eye exam: Present: normal appearance, PERRL, EOMI. Absent: scleral icterus, conjunctival injection, periorbital swelling ENT exam: Present: normal exam, mucous membranes moist Neck exam: Present: normal inspection. Absent: tenderness, meningismus, lymphadenopathy Respiratory exam: Present: normal lung sounds bilaterally. Absent: respiratory distress, wheezes, rales, rhonchi, stridor Cardiovascular Exam: Present: regular rate, normal rhythm, normal heart sounds. Absent: systolic murmur, diastolic murmur, rubs, gallop, clicks GI/Abdominal exam: Present: distended, tenderness, guarding, rebound, normal bowel sounds, other (Patient does have a 3 port sites anterior abdomen mildly tender with no significant erythema or drainage). Absent: rigid Extremities exam: Present: normal inspection, full ROM, normal capillary refill. Absent: tenderness, pedal edema, joint swelling, calf tenderness Back exam: Present: normal inspection Neurological exam: Present: alert, oriented X3, CN II-XII intact Psychiatric exam: Present: normal affect, normal mood Skin exam: Present: warm, dry, intact, normal color. Absent: rash Course Vital Signs 07/22/19 07/22/19 07/22/19 16:06 17:28 18:18 Temperature 98.9 F Pulse Rate 93 76 88 Respiratory 20 16 16 Rate Blood Pressure 160/83 136/71 134/83 O2 Sat by Pulse 96 93 L 96 Oximetry 07/22/19 18:54 Temperature Pulse Rate 82 Respiratory 20 Rate Blood Pressure 150/82 O2 Sat by Pulse 94 L Oximetry - Reevaluation(s) Reevaluation #1: 07/22/19 16:54 Medical record and surgical record. Reevaluation #2: 07/22/19 19:21 Patient's pain is well-controlled currently, surgical sites are again reviewed no significant erythema or drainage - Consultations Consultation #1: Spoke with Dr. Sandoval, patient okay to discharge home with pain control Medical Decision Making - Medical Decision Making 73 male the ER for evaluation of postop abdominal pain. No fevers. Labwork is normal CT scans negative. Patient can be discharged home - Lab Data Result diagrams: 07/22/19 16:16 07/22/19 16:16 Lab Results 07/22/19 07/22/19 07/22/19 Range/Units 16:16 16:16 16:16 WBC 16.1 H (3.8-10.6) k/uL RBC 4.95 (4.30-5.90) m/uL Hgb 16.2 (13.0-17.5) gm/dL Hct 44.9 (39.0-53.0) % MCV 90.8 (80.0-100.0) fL MCH 32.8 (25.0-35.0) pg MCHC 36.1 (31.0-37.0) g/dL RDW 13.5 (11.5-15.5) % Plt Count 202 (150-450) k/uL Neutrophils % 73 % Lymphocytes % 17 % Monocytes % 7 % Eosinophils % 1 % Basophils % 1 % Neutrophils # 11.7 H (1.3-7.7) k/uL Lymphocytes # 2.7 (1.0-4.8) k/uL Monocytes # 1.2 H (0-1.0) k/uL Eosinophils # 0.1 (0-0.7) k/uL Basophils # 0.1 (0-0.2) k/uL PT 10.7 (9.0-12.0) sec INR 1.0 (<1.2) APTT 26.7 (22.0-30.0) sec Sodium 138 (137-145) mmol/L Potassium 4.2 (3.5-5.1) mmol/L Chloride 98 (98-107) mmol/L Carbon Dioxide 27 (22-30) mmol/L Anion Gap 13 mmol/L BUN 12 (9-20) mg/dL Creatinine 0.88 (0.66-1.25) mg/dL Est GFR (CKD-EPI)AfAm >90 (>60 ml/min/1.73 sqM) Est GFR (CKD-EPI)NonAf >90 (>60 ml/min/1.73 sqM) Glucose 130 H (74-99) mg/dL Plasma Lactic Acid [place]undo (0.7-2.0) mmol/L Calcium 9.2 (8.4-10.2) mg/dL Total Bilirubin 2.7 H (0.2-1.3) mg/dL AST 24 (17-59) U/L ALT 22 (21-72) U/L Alkaline Phosphatase 99 (38-126) U/L Creatine Kinase 555 H (55-170) U/L Troponin I (0.000-0.034) ng/mL Total Protein 7.6 (6.3-8.2) g/dL Albumin 4.5 (3.5-5.0) g/dL Amylase 44 (30-110) U/L Lipase 46 (23-300) U/L Urine Color Urine Appearance (Clear) Urine pH (5.0-8.0) Ur Specific Walker (1.001-1.035) Urine Protein (Negative) Urine Glucose (UA) (Negative) Urine Ketones (Negative) Urine Blood (Negative) Urine Nitrite (Negative) Urine Bilirubin (Negative) Urine Urobilinogen (<2.0) mg/dL Ur Leukocyte Esterase (Negative) Urine RBC (0-5) /hpf Urine WBC (0-5) /hpf Urine Mucus (None) /hpf 09/12/19 09/12/19 09/12/19 Range/Units 16:16 17:24 18:46 WBC (3.8-10.6) k/uL RBC (4.30-5.90) m/uL Hgb (13.0-17.5) gm/dL Hct (39.0-53.0) % MCV (80.0-100.0) fL MCH (25.0-35.0) pg MCHC (31.0-37.0) g/dL RDW (11.5-15.5) % Plt Count (150-450) k/uL Neutrophils % % Lymphocytes % % Monocytes % % Eosinophils % % Basophils % % Neutrophils # (1.3-7.7) k/uL Lymphocytes # (1.0-4.8) k/uL Monocytes # (0-1.0) k/uL Eosinophils # (0-0.7) k/uL Basophils # (0-0.2) k/uL PT (9.0-12.0) sec INR (<1.2) APTT (22.0-30.0) sec Sodium (137-145) mmol/L Potassium (3.5-5.1) mmol/L Chloride (98-107) mmol/L Carbon Dioxide (22-30) mmol/L Anion Gap mmol/L BUN (9-20) mg/dL Creatinine (0.66-1.25) mg/dL Est GFR (CKD-EPI)AfAm (>60 ml/min/1.73 sqM) Est GFR (CKD-EPI)NonAf (>60 ml/min/1.73 sqM) Glucose (74-99) mg/dL Plasma Lactic Acid [place] 1.3 (0.7-2.0) mmol/L Calcium (8.4-10.2) mg/dL Total Bilirubin (0.2-1.3) mg/dL AST (17-59) U/L ALT (21-72) U/L Alkaline Phosphatase (38-126) U/L Creatine Kinase (55-170) U/L Troponin I <0.012 (0.000-0.034) ng/mL Total Protein (6.3-8.2) g/dL Albumin (3.5-5.0) g/dL Amylase (30-110) U/L Lipase (23-300) U/L Urine Color Yellow Urine Appearance Clear (Clear) Urine pH 6.0 (5.0-8.0) Ur Specific Walker 1.017 (1.001-1.035) Urine Protein Trace H (Negative) Urine Glucose (UA) Negative (Negative) Urine Ketones 1+ H (Negative) Urine Blood Moderate H (Negative) Urine Nitrite Negative (Negative) Urine Bilirubin Negative (Negative) Urine Urobilinogen <2.0 (<2.0) mg/dL Ur Leukocyte Esterase Negative (Negative) Urine RBC 31 H (0-5) /hpf Urine WBC 1 (0-5) /hpf Urine Mucus Rare H (None) /hpf - Radiology Data Radiology results: report reviewed (CTA chest is negative for acute disease CT abdomen pelvis is negative for acute disease post surgical changes), image reviewed Disposition Clinical Impression: Abdominal pain, Postoperative pain Disposition: HOME SELF-CARE Condition: Good Instructions (If sedation given, give patient instructions): Abdominal Pain (ED) Is patient prescribed a controlled substance at d/c from ED?: No Referrals: Andressa Azevedo MD [Primary Care Provider] - 1-2 days
[2019-07-22 17:14] LABS: Basophils # (A) 0.1 k/uL (0-0.2); Basophils % (A) 1 %; Eosinophils # (A) 0.1 k/uL (0-0.7); Eosinophils % (A) 1 %; HCT 44.9 % (39.0-53.0); HGB 16.2 gm/dL (13.0-17.5); Lymphocytes # (A) 2.7 k/uL (1.0-4.8); Lymphocytes % (A) 17 %; MCH 32.8 pg (25.0-35.0); MCHC 36.1 g/dL (31.0-37.0); MCV 90.8 fL (80.0-100.0); Mean Platelet Volume 6.2; Monocytes # (A) 1.2 k/uL (0-1.0); Monocytes % (A) 7 %; Neutrophils # (A) 11.7 k/uL (1.3-7.7); Neutrophils % (A) 73 %; Platelet Count 202 k/uL (150-450); RBC 4.95 m/uL (4.30-5.90); RDW 13.5 % (11.5-15.5); WBC 16.1 k/uL (3.8-10.6)
[2019-07-22 17:23] LABS: ALT 22 U/L (21-72); AST 24 U/L (17-59); African American GFR (CKD) >90 (>60 ml/min/1.73 sqM); Albumin 4.5 g/dL (3.5-5.0); Alkaline Phosphatase 99 U/L (38-126); Amylase 44 U/L (30-110); Anion Gap 13 mmol/L; Blood Urea Nitrogen 12 mg/dL (9-20); Calcium 9.2 mg/dL (8.4-10.2); Carbon Dioxide 27 mmol/L (22-30); Chloride 98 mmol/L (98-107); Creatine Kinase 555 U/L (55-170); Glucose 130 mg/dL (74-99); Non-African American GFR(CKD) >90 (>60 ml/min/1.73 sqM); Partial Thromboplastin Time 26.7 sec (22.0-30.0); Potassium 4.2 mmol/L (3.5-5.1); Prothrombin Time 10.7 sec (9.0-12.0); Sodium 138 mmol/L (137-145); Total Bilirubin 2.7 mg/dL (0.2-1.3); Total Protein 7.6 g/dL (6.3-8.2)
[2019-07-22] MEDS ORDERED: diphenhydrAMINE 50 MG/ML 1 ML VIAL IVP STA (17:41)
[2019-07-22] MEDS ORDERED: FAMOTIDINE 20 MG/2 ML VIAL IV STA (17:41)
[2019-07-22] MEDS ORDERED: methylPREDNISolone SOD SUCCI 125 MG/2 ML VIAL IV STA (17:41)
--- NOTE | 2019-07-22 18:12 | US ---
EXAMINATION TYPE: US venous doppler duplex LE BI DATE OF EXAM: 07/22/2019 6:01 PM COMPARISON: NONE CLINICAL HISTORY: DVT. R/O DVT. NO hx DVT. SIDE PERFORMED: Bilateral TECHNIQUE: The lower extremity deep venous system is examined utilizing real time linear array sonog xi with graded compression, doppler sonography and color-flow sonography. VESSELS IMAGED: External Iliac Vein (EIV) Common Femoral Vein Deep Femoral Vein Greater Saphenous Vein * Femoral Vein Popliteal Vein Small Saphenous Vein * Proximal Calf Veins (* superficial vessels) Right Leg: No evidence of DVT in veins imaged from prox calf veins to EIV. Left Leg: No evidence of DVT in veins imaged from prox calf veins to EIV. IMPRESSION: No evidence of deep venous thrombosis in both legs.
[2019-07-22] MEDS ORDERED: MORPHINE SULFATE 4 MG/ML SYRINGE IVP STA (18:48)
[2019-07-22 18:55] VITALS: BP 150/82; PULSE 82; RESP 20
--- NOTE | 2019-07-22 19:04 | CT ---
EXAMINATION TYPE: CT abdomen pelvis w con DATE OF EXAM: 07/22/2019 COMPARISON: 03/02/2019 HISTORY: Hernia repair 2 days ago, difficulty breathing, leg swelling and abdominal pain. CT DLP: 1599.4 mGycm Automated exposure control for dose reduction was used. TECHNIQUE: Helical acquisition of images was performed from the lung bases through the pelvis. CONTRAST: Performed without Oral Contrast and with IV Contrast, patient injected with mL of Isovue 370. FINDINGS: There is some patchy atelectasis at the lung bases. There is no pleural effusion. Heart size is peter l. Liver spleen stomach pancreas gallbladder appear normal. Bile ducts are not dilated. There is no adre nal mass. Kidneys show satisfactory contrast opacification. There is no hydronephrosis. Ureters are n ot dilated. Bladder distends smoothly. There is no inguinal hernia. There is prostatic calcification. There is no free fluid in the pelvis. There is fat stranding over the anterior lower abdomen consist ent with recent surgery. There is no sign of free air. There is no ascites. There is no evidence of a bowel obstruction. Appen ivet appears normal. There is aortoiliac stent noted. There is stent in the mid abdominal aorta. There are spondylotic changes in the lumbar spine. There is no compression fracture. Bony pelvis is intact . IMPRESSION: THERE IS SOME FAT STRANDING AND FLUID ON THE ANTERIOR ABDOMINAL WALL AROUND THE UMBILICUS AT THE SURG RIMA SITE. NO FREE AIR. THERE IS NEW ATELECTASIS AT THE LUNG BASES COMPARED TO OLD EXAM.
--- NOTE | 2019-07-22 19:07 | CT ---
EXAMINATION TYPE: CT angio chest DATE OF EXAM: 07/22/2019 6:51 PM COMPARISON: None HISTORY: Hernia repair 2 days ago, difficulty breathing, leg swelling and abdominal pain. CT DLP: 508.1 mGycm Automated exposure control for dose reduction was used. CONTRAST: CTA scan of the thorax is performed with IV Contrast, patient injected with 100 mL of Isovue 370, pul monary embolism protocol. . There are 3-D post processed images. FINDINGS: There is mild diffuse pulmonary emphysema. There is patchy atelectasis at the lung bases. There is no pleural effusion. Heart size is normal. There is no pericardial effusion. Thoracic aorta is intact w ithout evidence of aneurysm or dissection. There is normal contrast opacification of the pulmonary arteries. I see no filling defects. There are no hilar masses. There are bilateral multiple bronchial lymph nodes that measure up to 1.5 cm. There is no mediastinal adenopathy. There is spurring in the thoracic spine. I see no bony destructive pro cess. IMPRESSION: NO EVIDENCE OF PULMONARY EMBOLISM. ATELECTASIS AT THE LUNG BASES. NONSPECIFIC BRONCHIAL LYMPH NODES.
[2019-07-22 19:12] LABS: Appearance,Urine Clear (Clear); Bilirubin,Urine Negative (Negative); Blood,Urine Moderate (Negative); Color,Urine Yellow; Glucose,Urine (UA) Negative (Negative); Ketones,Urine 1+ (Negative); Leukocyte Esterase,Urine Negative (Negative); Mucus,Urine Rare /hpf; Nitrite,Urine Negative (Negative); Protein,Urine Trace (Negative); RBC,Urine 31 /hpf (0-5); Specific Gravity,Urine 1.017 (1.001-1.035); Urobilinogen,Urine <2.0 mg/dL (<2.0); WBC,Urine 1 /hpf (0-5)
== END 2019-07-22 19:45 | disposition home or self-care (01) ==
LOC: EC 16:05
DX: G89.18 Other acute postprocedural pain (principal); R10.84 Generalized abdominal pain; R14.0 Abdominal distension (gaseous); R11.2 Nausea with vomiting, unspecified; R63.0 Anorexia; M79.89 Other specified soft tissue disorders; R06.02 Shortness of breath; J44.9 Chronic obstructive pulmonary disease, unspecified; E11.9 Type 2 diabetes mellitus without complications; G89.29 Other chronic pain; F17.200 Nicotine dependence, unspecified, uncomplicated; Z88.0 Allergy status to penicillin; Z88.8 Allergy status to other drugs, medicaments and biological substances; Z91.041 Radiographic dye allergy status; Z79.51 Long term (current) use of inhaled steroids; Z79.891 Long term (current) use of opiate analgesic; Z79.899 Other long term (current) drug therapy; Z86.79 Personal history of other diseases of the circulatory system; Z95.5 Presence of coronary angioplasty implant and graft
CPT/HCPCS: 36415; 80053; 82150; 82550; 83605; 83690; 84484; 85025; 85610; 85730; 81001; 93970; 71275; 74177; 99284; 96374; 96375 ×5; 96376; 96361 ×2; J2270; J1200; J2930; J2405; C9113; Q9967

== ENCOUNTER 2019-07-23 20:09 | Emergency (ER) | payer OTHER ==
[2019-07-23 20:27] VITALS: TEMP 99.1
[2019-07-23 20:33] LABS: Glucose,Whole Blood 163 mg/dL (75-99)
--- NOTE | 2019-07-23 22:45 | ED ---
General Adult HPI - General Chief complaint: Recheck/Abnormal Lab/Rx Stated complaint: revisit-feet & hand swelling Time Seen by Provider: 07/23/19 22:03 Source: patient, family, RN notes reviewed, old records reviewed Mode of arrival: ambulatory Limitations: no limitations - History of Present Illness Initial comments: Chief complaint history of present illness a 63-year-old male who returns today after having been evaluated yesterday. The patient reports that 3 days ago he had umbilical hernia repair laparoscopically. 2 days later he had noticed swelling to his hands and feet. He received a workup yesterday with no specific results found. The only new medication he took was [place]. The patient reports she has chronic pain and normally takes morphine which she did take in addition to the [place]. She was cautioned about overuse of narcotics. He has not had a bowel movement since the surgery. Patient was advised increase his fluid intake and decrease the pain medication as needed. She also reports that the hand swelling has gone down and the both feet swelling has gone down. No evidence of any calf pain or shortness of breath. - Related Data Home Medications Medication Instructions Recorded Confirmed Atorvastatin [Lipitor] 40 mg PO DAILY 05/31/15 07/23/19 Morphine Sulfate Ir [MSIR] 15 mg PO BID PRN 05/31/15 07/23/19 Albuterol Inhaler [Ventolin Hfa 2 puff INHALATION RT-BID PRN 11/04/18 07/23/19 Inhaler] Fluticasone/Salmeterol [Advair 1 puff INHALATION RT-DAILY PRN 11/04/18 07/23/19 250-50 Diskus] Morphine Sulfate ER [Ms Contin] 15 mg PO Q12HR 06/10/19 07/23/19 Previous Rx's Medication Instructions Recorded Docusate [Colace] 100 mg PO BID #20 capsule 07/20/19 HYDROcodone/APAP 5-325MG [[place] 1 tab PO Q6HR PRN #10 tab 07/20/19 5-325] Allergies Allergy/AdvReac Type Severity Reaction Status Date / Time Penicillins Allergy Rash/Hives Verified 07/23/19 21:53 famotidine AdvReac Vomiting Verified 07/23/19 21:53 Iodinated Contrast- Oral and AdvReac Vomiting Verified 07/23/19 21:53 IV Dye [Iodinated Contrast Media - IV Dye] Review of Systems ROS Statement: Those systems with pertinent positive or pertinent negative responses have been documented in the HPI. Review of systems. Patient has no complaint of headache no chest pain he does have COPD and does smoke encouraged to stop. But denies any significant shortness of breath. No significant abdominal pain. He is taking pain medication for that. No bowel movement since the surgery. No external pain and no swelling noted this time. Patient reports swelling subsided while waiting in the emergency room. Patient states that if he were at home right now he would not come in. Past medical processing significant for COPD, diabetes, osteoarthritis, chronic back pain on morphine from an injury over 20 years ago. He's had cardiac cardiac catheterization orthopedic surgery and tonsillectomy. Family history ALLERGIES to penicillin famotidine iodine contrast dye. She reports she felt better after taking Benadryl. ROS Other: All systems not noted in ROS Statement are negative. Past Medical History Past Medical History: Asthma, COPD, Diabetes Mellitus, Osteoarthritis (OA) Additional Past Medical History / Comment(s): chronic back pain from back injury 20 yrs ago, aortic aneurysm, varicose veins, constipation, kdiney stones, diet control diabetic History of Any Multi-Drug Resistant Organisms: None Reported Past Surgical History: Heart Catheterization With Stent, Hernia Repair, Orthopedic Surgery, Tonsillectomy Additional Past Surgical History / Comment(s): arthroscopic left knee, LEFT PERCUTANEOUS NEPRHOLITHOTOMY, cystoscopy, lasik eye surgery, aortic heart stents Past Anesthesia/Blood Transfusion Reactions: No Reported Reaction Date of Last Stent Placement:: 11/11/18 Past Psychological History: No Psychological Hx Reported Smoking Status: Current every day smoker Past Alcohol Use History: None Reported Past Drug Use History: Marijuana - Past Family History Father Family Medical History: Cancer General Exam - General Exam Comments Initial Comments: General: The patient is awake and alert, in no distress, and does not appear acutely ill. Patient states that the swelling that he noted yesterday in his hands as subsided the swelling had his feet has subsided while waiting in emergency room. Vital signs show temperature 99.1 pulse 79 respiratory rate 18 pulse ox 94% room air the patient is a smoker with COPD. And blood pressure 147/75. Eye: Pupils are equal, round and reactive to light, extra-ocular movements are intact; there is normal conjunctiva bilaterally. Ears, nose, mouth and throat: There are moist mucous membranes and no oral lesions. Neck: The neck is supple, No complaint of chest pain or shortness of breath. Again patient has COPD and was strongly advised to stop smoking Gastrointestinal: Patient has an abdominal binder on, recent laparoscopic umbilical hernia repair. Back: Chronic back pain Musculoskeletal: Normal ROM, no tenderness, There is no pedal edema. There is no calf tenderness or swelling. Sensation intact. Pulses equal bilaterally 2+. Foot swelling he had earlier has since subsided. Neurological: No complaint of a numbness tingling or neuro deficits.. Skin: Skin is warm and dry and no rashes or lesions are noted. Psychiatric: Cooperative, Limitations: no limitations Course Vital Signs 07/23/19 20:23 Temperature 99.1 F Pulse Rate 79 Respiratory 18 Rate Blood Pressure 147/75 O2 Sat by Pulse 94 L Oximetry Medical Decision Making - Medical Decision Making Medical decision making; this is a 63-year-old male who reports that yesterday he had swelling in her hands and feet. Workup yesterday emergency room was negative. He persisted having some swelling to the feet today though the hands improved. While waiting in emergency room waiting room he reported that the swelling went away. His does point out that the patient sat for a fairly long period time with his feet down. Patient was encouraged to keep his legs and feet elevated. Vital signs are stable. Neurovascular status of the feet are intact. No evidence of any calf pain. 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 Continue with Benadryl 25 mg 3 times a day for the next 2 days. Return emergency room if any difficulties or follow-up family doctor. Is patient prescribed a controlled substance at d/c from ED?: No Referrals: Andressa Azevedo MD [Primary Care Provider] - 1-2 days Time of Disposition: 22:45
[2019-07-23 22:50] VITALS: BP 138/91; PULSE 64; RESP 16
== END 2019-07-23 22:52 | disposition home or self-care (01) ==
LOC: EC 20:09
DX: M79.89 Other specified soft tissue disorders (principal); G89.29 Other chronic pain; E11.65 Type 2 diabetes mellitus with hyperglycemia; J44.9 Chronic obstructive pulmonary disease, unspecified; M19.90 Unspecified osteoarthritis, unspecified site; F17.200 Nicotine dependence, unspecified, uncomplicated; Z95.5 Presence of coronary angioplasty implant and graft; Z79.51 Long term (current) use of inhaled steroids; Z79.891 Long term (current) use of opiate analgesic; Z79.899 Other long term (current) drug therapy; Z88.0 Allergy status to penicillin; Z88.8 Allergy status to other drugs, medicaments and biological substances; Z91.041 Radiographic dye allergy status
CPT/HCPCS: 36415; 99283

== ENCOUNTER → 2020-08-29 | Outpatient (CLI) | payer OTHER ==
[2020-08-29 15:50] LABS: African American GFR (CKD) >90 (>60 ml/min/1.73 sqM); Blood Urea Nitrogen 12 mg/dL (9-20); Non-African American GFR(CKD) >90 (>60 ml/min/1.73 sqM)
--- NOTE | 2020-08-29 16:27 | CT ---
EXAMINATION TYPE: CT angio abdomen DATE OF EXAM: 08/29/2020 COMPARISON: HISTORY: Follow up for AAA CT DLP: 1575.9 mGycm, Automated Exposure Control for Dose Reduction was Utilized. CONTRAST: CTA scan of the abdomen is performed without oral and without and with IV Contrast, patient injected with 100 mL of Isovue 370. Aneurysm protocol with 3-D reconstructed images created on a independent w orkstation and reviewed. Stent graft protocol. FINDINGS: VASCULAR: Persistent stent graft beginning at level of celiac artery terminating common iliac arteria l bifurcation. Postcontrast images show persistent patency or enhancement of the stent graft without extraluminal enhancement to suggest endoleak. [place] AAA up to 3.7 cm transversely with some lobulati on axial image 37 series 5 is not significantly changed from most recent prior study improved from ol [place] studies before stent graft. LUNG BASES: Posterior bibasilar scarring and/or Limited consolidation redemonstrated without signific ant interval change. LIVER/GB: No significant abnormality is appreciated. PANCREAS: No significant abnormality is seen. SPLEEN: No significant abnormality is seen. ADRENALS: Slightly low dense thickening to left adrenal gland favoring benign lipid rich hyperplasia. KIDNEYS: There is 4 to 5 mm nonobstructing calculus lower pole left kidney slightly larger and change d position from most recent CT. No hydronephrosis noted currently. BOWEL: Some diverticula in the visualized portion of sigmoid colon. LYMPH NODES: No greater than 1cm abdominal lymph nodes are appreciated. OSSEOUS STRUCTURES: Multilevel moderate spurring in the spine. Endplate sclerosis inferior L4 level. OTHER: No significant additional abnormality is seen. IMPRESSION: Patent stent graft without CTA evidence for endoleak. Note is made of some progression in position and enlargement of the 4 to 5 mm lower pole left renal calculus now within the lower pole c margo.
== END | disposition home or self-care (01) ==
LOC: RADCTMAIN 15:14
PROVIDERS: ATTEND Internal Medicine Interventional Cardiology
DX: I71.4 Abdominal aortic aneurysm, without rupture (principal); Z88.0 Allergy status to penicillin; Z91.048 Other nonmedicinal substance allergy status
CPT/HCPCS: 82565; 84520; 74175; 36415; Q9967

== ENCOUNTER → 2023-04-08 | Outpatient (CLI) | payer MEDICARE, OTHER ==
[2023-04-08 15:12] LABS: African American GFR (CKD) >90 (>60 ml/min/1.73 sqM); Blood Urea Nitrogen 12 mg/dL (9-20); Non-African American GFR(CKD) >90 (>60 ml/min/1.73 sqM)
--- NOTE | 2023-04-09 09:25 | CT ---
EXAMINATION TYPE: CT angio abdomen pelvis CT DLP: 1701.2 mGycm, Automated exposure control for dose reduction was used. DATE OF EXAM: 04/08/2023 3:55 PM COMPARISON: 08/29/2020 CT CLINICAL INDICATION:Male, 67 years old with history of I71.4;, AAA TECHNIQUE: Multiple thin slice sub-millimeter images were obtained through the abdomen, pelvis after administration of contrast. 3-D reconstructed images and maximum intensity projection images were ob tained of the abdomen, pelvis CT Contrast: Contrast used:100 CC mL of Isovue 370 without and with IV Contrast, Oral contrast used: without Oral Contrast None FINDINGS: CTA Abdomen and pelvis: No evidence of intramural hematoma on noncontrast imaging. There are scattered atherosclerosis present of the arterial vasculature. A aortobiiliac stent graft i s present. The stent graft is patent. The size of the stent graft remains the same from 2019. The carol or branches of the abdominal aorta including the celiac axis, superior mesenteric artery and bilatera l renal arteries are patent. The external iliac arteries and visualized portions of the upper leg art erial vasculature are patent. No evidence of intimal flap to suggest dissection. LOWER CHEST: No evidence of focal consolidation, pneumothorax or pleural effusion. LIVER: Unremarkable GALLBLADDER AND BILE DUCTS: Unremarkable. PANCREAS: Unremarkable. SPLEEN: Unremarkable. ADRENAL GLANDS: Unremarkable. KIDNEYS AND URETERS: No evidence of hydronephrosis . Nonobstructing left 5 mm calculus. No right stefan l calculus. PELVIS BLADDER: Unremarkable REPRODUCTIVE: Unremarkable. ABDOMEN & PELVIS STOMACH AND BOWEL: No evidence of bowel obstruction. Scattered colonic diverticula present. PERITONEUM: No evidence of pneumoperitoneum or free fluid. MUSCULOSKELETAL: No acute osseous abnormalities LYMPH NODES: No gross evidence for lymphadenopathy. SOFT TISSUE/ABDOMINAL WALL: Unremarkable IMPRESSION 1. Infrarenal abdominal aortic fusiform aneurysm with stent graft placement. Stent graft is intact a nd patent. No significant change from 08/29/2020. 2. No acute abdominal process. 3. Left 5 mm nonobstructing calculus. 4. Colonic diverticulosis.
== END | disposition home or self-care (01) ==
LOC: RADCTMAIN 14:05
PROVIDERS: ATTEND Internal Medicine Interventional Cardiology
DX: I71.43 Infrarenal abdominal aortic aneurysm, without rupture (principal); K57.30 Diverticulosis of large intestine without perforation or abscess without bleeding; N20.0 Calculus of kidney
CPT/HCPCS: 82565; 84520; 36415; 74174; Q9967

== ENCOUNTER 2023-10-08 07:33 | Day surgery (SDC) | payer MEDICARE, OTHER ==
[2023-10-06 14:29] VITALS: BMI 26.4
[~2023-10-08 07:33] MED LIST changes: -DEXAMETHASONE SOD PHOSPHATE 10 MG/ML 1 ML VIAL IV ONE; -HEPARIN SODIUM,PORCINE 5,000 UNIT/ML 1 ML VIAL SQ ONE; -HYDROmorphone 0.5 MG/0.5 ML SYRINGE IVP PRN; +LIDOCAINE 1% (10MG/ML) FOR IV START INTRADERMA PRN; -LIDOCAINE 1% 20 ML VIAL (10MG/ML) FOR IV START INTRADERMA PRN; -ONDANSETRON 4 MG/2 ML VIAL IVP ONE; -SCOPOLAMINE 1.5MG/72HR PATCH TRANSDERM ONE
[2023-10-08 08:18] LABS: Glucose,Whole Blood 101 mg/dL (70-110)
[2023-10-08 08:36] VITALS: TEMP 98
[2023-10-08] MEDS ORDERED: PROPOFOL 10 MG/ML 20 ML VIAL IV ONE (09:16)
--- NOTE | 2023-10-08 09:50 | P.PCN ---
Date of Procedure: 10/08/23 Procedure(s) Performed: BRIEF HISTORY: Patient is a 67-year-old pleasant white male scheduled for an elective colonoscopy as a part of screening for colon cancer. PROCEDURE PERFORMED: Colonoscopy with snare polypectomy. PREOPERATIVE DIAGNOSIS: Screening for colon cancer. IV sedation per Anesthesia. PROCEDURE: After informed consent was obtained, the patient, was brought into the endoscopy unit. IV sedation was administered by Anesthesia under continuous monitoring. Digital rectal examination was normal. Initially the Olympus CF-160 flexible video colonoscope was then inserted in the rectum, gradually advanced into the cecum without any difficulty. Careful examination was performed as the scope was gradually being withdrawn. Ileocecal valve and the appendiceal orifice were visualized and appeared normal. Prep was excellent. Mucosa of the cecum, ascending colon, transverse colon, descending colon, appeared normal. In the sigmoid: There was a 3 mm and a 6 mm polyp removed by snare polypectomy. In the proximal rectum there was a 1 cm polyp removed by snare polypectomy. Rest of the rectum appeared normal. Retroflexion was performed in the rectum and no lesions were seen. The patient tolerated the procedure well. IMPRESSION: 3 mm and 6 mm sigmoid: Polyp status post polypectomy 1 cm rectal polyp status post polypectomy RECOMMENDATIONS: Findings of this examination were discussed with the patient .as well as his family. He was advised to follow with the biopsy results. If the biopsy reveals adenoma he can have a repeat colonoscopy in 3 years.
[2023-10-08 10:36] VITALS: BP 130/71; PULSE 60; RESP 16
== END 2023-10-08 10:49 | disposition home or self-care (01) ==
LOC: ORWHC2ENDO 07:33
PROVIDERS: ATTEND Internal Medicine Gastroenterology
DX: Z12.11 Encounter for screening for malignant neoplasm of colon (principal); D12.5 Benign neoplasm of sigmoid colon; D12.8 Benign neoplasm of rectum; I10 Essential (primary) hypertension; E78.5 Hyperlipidemia, unspecified; J44.89 Other specified chronic obstructive pulmonary disease; M19.90 Unspecified osteoarthritis, unspecified site; E11.9 Type 2 diabetes mellitus without complications; F90.9 Attention-deficit hyperactivity disorder, unspecified type; F12.90 Cannabis use, unspecified, uncomplicated; Z88.0 Allergy status to penicillin; Z88.8 Allergy status to other drugs, medicaments and biological substances; Z88.5 Allergy status to narcotic agent; Z79.51 Long term (current) use of inhaled steroids; Z79.1 Long term (current) use of non-steroidal anti-inflammatories (NSAID); Z79.899 Other long term (current) drug therapy
CPT/HCPCS: 88305; 45385; J2704

== ENCOUNTER → 2023-10-13 | Outpatient (CLI) | payer MEDICARE, OTHER ==
--- NOTE | 2023-10-13 09:36 | US ---
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 TECHNIQUE: Multiple sonographic images of the right upper quadrant are obtained. FINDINGS: EXAM MEASUREMENTS: Liver Length: 16.5 cm Gallbladder Wall: 0.2 cm CBD: 0.2 cm Right Kidney: 11.7 x 5.8 x 5.2 cm Pancreas: Tail obscured by overlying bowel gas Liver: wnl Gallbladder: wnl Evidence for sonographic Atkins's sign: No CBD: 0.5 cm extrahepatically Right Kidney: subcentimeter cyst upper medial pole. IMPRESSION: No evidence for acute process.
[2023-10-13 16:24] LABS: Hepatitis A Antibody IgM Nonreactive; Hepatitis B Core IgM Nonreactive; Hepatitis B Surface Antigen Nonreactive; Hepatitis C IgG Antibody Nonreactive
== END | disposition home or self-care (01) ==
LOC: RADUSWWP 08:58
PROVIDERS: ATTEND Internal Medicine
DX: E80.6 Other disorders of bilirubin metabolism (principal); I10 Essential (primary) hypertension; K42.9 Umbilical hernia without obstruction or gangrene; Z95.5 Presence of coronary angioplasty implant and graft
CPT/HCPCS: 76705; 80074

== ENCOUNTER → 2024-09-01 | Outpatient (CLI) | payer MEDICARE, OTHER ==
[2024-09-01 14:14] LABS: African American GFR (CKD) >90 (>60 ml/min/1.73 sqM); Blood Urea Nitrogen 14 mg/dL (9-20); Non-African American GFR(CKD) 86 (>60 ml/min/1.73 sqM)
--- NOTE | 2024-09-01 15:04 | CT ---
EXAMINATION TYPE: CT noncontrast abdomen and pelvis. CT angio abdomen pelvis CT DLP: 1842.50 mGycm, Automated exposure control for dose reduction was used. DATE OF EXAM: 09/01/2024 2:55 PM COMPARISON: 04/08/2023 CLINICAL INDICATION: Male, 68 years old with history of I71.30 ABDOMINAL AORTIC ANEURYSM, RUPTURED, U NSPEC; PHH, Abdominal aortic aneurysm w/o rupture, hx of stent TECHNIQUE: CT noncontrast abdomen and pelvis followed by CT angiogram abdomen and pelvis. Multiple thin slice sub-millimeter images were obtained after administration of contrast. 3-D recons tructed images and maximum intensity projection images were obtained. CT angio abdomen pelvis CT Contrast: Contrast used:100 mL of Isovue 370 with IV Contrast, Oral contrast used: without Oral Contrast None FINDINGS: CTA Abdomen and pelvis: Aortobiiliac stent graft appears patent. The major vessels of the abdominal a olivia are patent. No evidence for endoleak on delayed imaging. The abdominal aorta does not demonstrat e aneurysmal dilatation. Scattered Atherosclerotic plaquing is identified within the abdominal aorta. The origins of the superior mesenteric artery, renal arteries, inferior mesenteric artery, and yolanda ac axis are patent. The iliac vessels are patent. LOWER CHEST: No evidence of focal consolidation, pneumothorax or pleural effusion. LIVER: Unremarkable GALLBLADDER AND BILE DUCTS: Unremarkable. PANCREAS: Unremarkable. SPLEEN: Unremarkable. ADRENAL GLANDS: Unremarkable. KIDNEYS AND URETERS: Nonobstructing left renal calculus measuring 5 mm. No right renal cocci. No hydr onephrosis. PELVIS BLADDER: Unremarkable REPRODUCTIVE: Coarse calcifications of the prostate gland are identified. ABDOMEN & PELVIS STOMACH AND BOWEL: No evidence of bowel obstruction. PERITONEUM: No evidence of pneumoperitoneum or free fluid. VASCULATURE: No evidence of aortic aneurysm. MUSCULOSKELETAL: Mild disc degeneration changes are present throughout the thoracolumbar spine. Joint space narrowing and osteophyte formation of the superior acetabulum of the hips with moderate osteoa rthrosis. LYMPH NODES: No gross evidence for lymphadenopathy. SOFT TISSUE/ABDOMINAL WALL: Unremarkable IMPRESSION: 1. No evidence for acute abdominal process. 2. Aortobiiliac stent graft without evidence for endoleak. 3. The major vessels of the abdominal aorta are patent. 4. Colonic diverticulosis. [facility], Workstation: [id number], 09/01/2024 3:01 PM
== END | disposition home or self-care (01) ==
LOC: RADCTMAIN 08-30 11:22
PROVIDERS: ATTEND Internal Medicine Interventional Cardiology
CPT/HCPCS: 36415; 74174; 82565; 84520

== ENCOUNTER → 2025-02-18 | Outpatient (CLI) | payer MEDICARE, OTHER ==
--- NOTE | 2025-02-18 13:46 | CTL ---
EXAMINATION TYPE: CT Low Dose Lung DATE OF EXAM: 02/18/2025 12:21 PM COMPARISON: CT 01/14/2023. CLINICAL INDICATION: Male, 69 years old with history of Z12.2 SCREENING LUNG CA F17.210 CURRENT SMOKE R; personal tobacco use, history of tobacco use. TECHNIQUE: Multiple axial non-contrast scans were obtained from approximately the lung apices through the upper abdomen. Coronal and sagittal reformatted images were obtained. Low dose technique was uti lized. MIP were created on a separate workstation and submitted for review. CT DLP: 137.1 mGycm, Automated exposure control for dose reduction was used. CT Contrast: Contrast used: None Oral contrast used: None FINDINGS: Lack of intravenous contrast and low dose technique limits the evaluation of the vascular and soft ti ssue structures. LUNGS: No evidence of pulmonary fibrosis. No evidence of focal consolidation, pneumothorax or pleural effusion. Centrilobular emphysema changes. Nodules: RUL: None. RML: None. RLL: None. JOHN: None. LLL: None. AIRWAY: Patent and unremarkable. HEART: Size within normal limits. No significant coronary artery calcifications. MEDIASTINUM: No gross evidence of adenopathy. Right pulmonary hilum lymph nodes are within normal alonso its. VASCULATURE: No aortic aneurysm. MUSCULOSKELETAL: Moderate disc degeneration changes are present throughout the thoracolumbar spine. SOFT TISSUES/LYMPH NODES: Unremarkable. LOWER NECK: No significant findings. UPPER ABDOMEN: Stranding stent graft noted in the abdomen. Left adrenal nodule not definitively visua lized. IMPRESSION: 1. No clinically significant pulmonary nodules. 2. Mild emphysema. CT LUNG RAD AND CT CHEST RECOMMENDATION: Lung-Rad 1 Negative: Continue annual screening with LDCT in 12 months. S Modifier (other clinically significant findings): None Recommend smoking cessation (if current smoker), or continuation of smoking cessation (if prior smoke r). Annual screening for lung cancer with low-dose computed tomography is recommended in adults ages 55 to 77 years who have a 30 pack-year smoking history and currently smoke or have quit within the pa st 15 years. Screening should be discontinued once a person has not smoked for 15 years or develops a health problem that substantially limits life expectancy or the ability or willingness to have curat farzad lung surgery. Lung rads 2021 [email or web address] [email or web address], , 02/18/2025 1:43 PM
== END | disposition home or self-care (01) ==
LOC: RADCTMAIN 11:48
PROVIDERS: ATTEND Internal Medicine
DX: Z12.2 Encounter for screening for malignant neoplasm of respiratory organs (principal); F17.210 Nicotine dependence, cigarettes, uncomplicated; J43.2 Centrilobular emphysema
CPT/HCPCS: 71271